=== PATIENT | female | born 1930 | race Caucasian/White ===

== ENCOUNTER 2016-09-27 13:12 | Inpatient (IN) | payer MEDICARE ==
--- NOTE | 2016-09-27 13:21 | ED ---
General Adult HPI - General Stated complaint: chest pain, vomiting Time Seen by Provider: 09/27/16 13:21 Source: RN notes reviewed, old records reviewed - History of Present Illness Initial comments: This is an 78-year-old female the ER for evaluation. This patient presents today for evaluation of shortness of breath weakness and altered mental status. Patient has no real medical history, has been exposed and she does live in a care facility to the flu. No fevers noted. Patient is a poor strain, history patient EMS and patient's chart - Related Data Home Medications Medication Instructions Recorded Confirmed HYDROcodone/APAP 10-325MG [[place] 1 tab PO DAILY 09/27/16 09/27/16 10-325] Allergies Allergy/AdvReac Type Severity Reaction Status Date / Time iodine Allergy Unknown Verified 09/27/16 13:52 Penicillins Allergy Unknown Verified 09/27/16 13:52 Childhood Review of Systems ROS Statement: Those systems with pertinent positive or pertinent negative responses have been documented in the HPI. ROS Other: All systems not noted in ROS Statement are negative. General Exam Limitations: altered mental status General appearance: alert, in no apparent distress, anxious, in distress, cachectic Head exam: Present: atraumatic, normocephalic, normal inspection Eye exam: Present: normal appearance, PERRL, EOMI. Absent: scleral icterus, conjunctival injection, periorbital swelling ENT exam: Present: normal exam, mucous membranes moist Neck exam: Present: normal inspection. Absent: tenderness, meningismus, lymphadenopathy Respiratory exam: Present: respiratory distress, wheezes, accessory muscle use, decreased breath sounds, prolonged expiratory. Absent: rales, rhonchi, stridor Cardiovascular Exam: Present: regular rate, normal rhythm, normal heart sounds. Absent: systolic murmur, diastolic murmur, rubs, gallop, clicks GI/Abdominal exam: Present: soft, normal bowel sounds. Absent: distended, tenderness, guarding, rebound, rigid Extremities exam: Present: normal inspection, full ROM, normal capillary refill. Absent: tenderness, pedal edema, joint swelling, calf tenderness Back exam: Present: normal inspection Neurological exam: Present: alert, oriented X3, CN II-XII intact Psychiatric exam: Present: normal affect, normal mood Skin exam: Present: warm, dry, intact, normal color. Absent: rash Course Vital Signs 09/27/16 09/27/16 09/27/16 13:26 14:03 14:30 Temperature 97.9 F Pulse Rate 94 Pulse Rate [ 82 82 Electrical Sign Wirer ] Respiratory 28 H 24 24 Rate Blood Pressure 118/72 Blood Pressure 98/53 103/61 [Right Arm Sitting] O2 Sat by Pulse 89 L 92 L 94 L Oximetry 09/27/16 09/27/16 09/27/16 14:37 14:52 15:22 Temperature Pulse Rate 86 92 86 Pulse Rate [ Electrical Sign Wirer ] Respiratory Rate Blood Pressure Blood Pressure [Right Arm Sitting] O2 Sat by Pulse Oximetry - Reevaluation(s) Reevaluation #1: 09/27/16 15:29 Patient breathing does appear to be improved with breathing treatments, patient is still significantly dehydrated, no real improvement improvement in mentation EKG Findings - EKG Comments: EKG Findings:: EKG shows A. fib rate of 96, QS 80, QTc 464 Medical Decision Making - Medical Decision Making 86 female at ER for evaluation of altered mental status, fever, positive influenza, COPD exacerbation, patient is found to be also profoundly dehydrated , will admit for IV hydration, resuscitation breathing treatments - Lab Data Result diagrams: 09/27/16 13:53 09/27/16 13:53 Lab Results 09/27/16 09/27/16 09/27/16 Range/Units 13:53 13:53 13:53 WBC 7.6 (3.8-10.6) k/uL RBC 5.06 (3.80-5.40) m/uL Hgb 15.8 (11.4-16.0) gm/dL Hct 47.5 H (34.0-46.0) % MCV 93.9 (80.0-100.0) fL MCH 31.2 (25.0-35.0) pg MCHC 33.2 (31.0-37.0) g/dL RDW 13.1 (11.5-15.5) % Plt Count 257 (150-450) k/uL Neutrophils % 59 % Lymphocytes % 32 % Monocytes % 6 % Eosinophils % 0 % Basophils % 0 % Neutrophils # 4.4 (1.3-7.7) k/uL Lymphocytes # 2.4 (1.0-4.8) k/uL Monocytes # 0.5 (0-1.0) k/uL Eosinophils # 0.0 (0-0.7) k/uL Basophils # 0.0 (0-0.2) k/uL Sodium 133 L (137-145) mmol/L Potassium 4.0 (3.5-5.1) mmol/L Chloride 97 L (98-107) mmol/L Carbon Dioxide 23 (22-30) mmol/L Anion Gap 13 mmol/L BUN 59 H (7-17) mg/dL Creatinine 1.18 H (0.52-1.04) mg/dL Est GFR (MDRD) Af Amer 52 (>60 ml/min/1.73 sqM) Est GFR (MDRD) Non-Af 43 (>60 ml/min/1.73 sqM) Glucose 122 H (74-99) mg/dL Plasma Lactic Acid Darek 1.4 (0.7-2.0) mmol/L Calcium 8.2 L (8.4-10.2) mg/dL Phosphorus (2.5-4.5) mg/dL Magnesium (1.6-2.3) mg/dL Total Bilirubin 0.8 (0.2-1.3) mg/dL AST 140 H (14-36) U/L ALT 57 H (9-52) U/L Alkaline Phosphatase 78 (38-126) U/L Total Creatine Kinase (30-135) U/L CK-MB (CK-2) (0.0-2.4) ng/mL CK-MB (CK-2) Rel Index Troponin I (0.000-0.034) ng/mL Total Protein 6.9 (6.3-8.2) g/dL Albumin 3.5 (3.5-5.0) g/dL Influenza Type A RNA (Not Detectd) Influenza Type B (PCR) (Not Detectd) 09/27/16 09/27/16 09/27/16 Range/Units 13:53 13:53 14:42 WBC (3.8-10.6) k/uL RBC (3.80-5.40) m/uL Hgb (11.4-16.0) gm/dL Hct (34.0-46.0) % MCV (80.0-100.0) fL MCH (25.0-35.0) pg MCHC (31.0-37.0) g/dL RDW (11.5-15.5) % Plt Count (150-450) k/uL Neutrophils % % Lymphocytes % % Monocytes % % Eosinophils % % Basophils % % Neutrophils # (1.3-7.7) k/uL Lymphocytes # (1.0-4.8) k/uL Monocytes # (0-1.0) k/uL Eosinophils # (0-0.7) k/uL Basophils # (0-0.2) k/uL Sodium (137-145) mmol/L Potassium (3.5-5.1) mmol/L Chloride (98-107) mmol/L Carbon Dioxide (22-30) mmol/L Anion Gap mmol/L BUN (7-17) mg/dL Creatinine (0.52-1.04) mg/dL Est GFR (MDRD) Af Amer (>60 ml/min/1.73 sqM) Est GFR (MDRD) Non-Af (>60 ml/min/1.73 sqM) Glucose (74-99) mg/dL Plasma Lactic Acid Darek (0.7-2.0) mmol/L Calcium (8.4-10.2) mg/dL Phosphorus 4.2 (2.5-4.5) mg/dL Magnesium 2.4 H (1.6-2.3) mg/dL Total Bilirubin (0.2-1.3) mg/dL AST (14-36) U/L ALT (9-52) U/L Alkaline Phosphatase (38-126) U/L Total Creatine Kinase 2947 H (30-135) U/L CK-MB (CK-2) 4.8 H* (0.0-2.4) ng/mL CK-MB (CK-2) Rel Index Troponin I 0.063 H* (0.000-0.034) ng/mL Total Protein (6.3-8.2) g/dL Albumin (3.5-5.0) g/dL Influenza Type A RNA Not Detected (Not Detectd) Influenza Type B (PCR) Detected H (Not Detectd) - Radiology Data Radiology results: report reviewed (Chest x-ray two-view is negative for pneumonia), image reviewed Critical Care Time Critical Care Time: Yes Total Critical Care Time: 31 Disposition Clinical Impression: Acute exacerbation of chronic obstructive airways disease, Dehydration, Elevated troponin, ARF (acute renal failure), Influenza B Disposition: ADMITTED IP TO THIS HOSP Condition: Serious Referrals: Fady Haines MD [Primary Care Provider] - 1-2 days
[2016-09-27] MEDS ORDERED: IPRATROPIUM 0.5 MG/2.5 ML NEBU INHALATION STA (13:58)
[2016-09-27] MEDS ORDERED: ACETAMINOPHEN IV (For NPO) 1,000 MG in EMPTY BAG 1 BAG IVPB STA (13:58)
[2016-09-27] MEDS ORDERED: KETOROLAC 30 MG/ML 1 ML VIAL IVP STA (13:58)
[2016-09-27] MEDS ORDERED: ALBUTEROL NEBULIZED 2.5 MG/3 ML INHALATION STA (13:58)
[2016-09-27] MEDS ORDERED: MORPHINE SULFATE 4 MG/ML SYRINGE IVP STA (13:58)
[2016-09-27 14:09] LABS: Basophils % (A) 0 %; CHCM 34.2; Eosinophils % (A) 0 %; HCT 47.5 % (34.0-46.0); HDW 2.36; HGB 15.8 gm/dL (11.4-16.0); Luc # (Auto) 0.22; Luc % (Auto) 3; Lymphocytes # (A) 2.4 k/uL (1.0-4.8); Lymphocytes % (A) 32 %; MCH 31.2 pg (25.0-35.0); MCHC 33.2 g/dL (31.0-37.0); MCV 93.9 fL (80.0-100.0); Mean Platelet Volume 7.1; Monocytes # (A) 0.5 k/uL (0-1.0); Monocytes % (A) 6 %; Neutrophils # (A) 4.4 k/uL (1.3-7.7); Neutrophils % (A) 59 %; RBC 5.06 m/uL (3.80-5.40); RDW 13.1 % (11.5-15.5); WBC 7.6 k/uL (3.8-10.6); WBC (Perox) 7.81
[2016-09-27 14:15] LABS: Calcium 8.2 mg/dL (8.4-10.2); Total Bilirubin 0.8 mg/dL (0.2-1.3); Total Protein 6.9 g/dL (6.3-8.2)
--- NOTE | 2016-09-27 14:36 | XR ---
EXAMINATION TYPE: XR chest 2V DATE OF EXAM: 09/27/2016 2:33 PM COMPARISON: NONE HISTORY: Cough and congestion TECHNIQUE: Frontal and lateral views of the chest are obtained. FINDINGS: There is chronic emphysematous change without suspicious focal air space opacity, pleural effusion, or pneumothorax seen. The cardiac silhouette size is upper limits of normal with atheroscl erotic thoracic aorta. The osseous structures are demineralized. Chronic thickening right paratrach eal stripe is present. IMPRESSION: Chronic emphysematous change without acute pulmonary process.
[2016-09-27 14:48] LABS: Magnesium 2.4 mg/dL (1.6-2.3)
[2016-09-27 14:50] LABS: Phosphorous 4.2 mg/dL (2.5-4.5)
[2016-09-27 15:02] LABS: Creatine Kinase MB 4.8 ng/mL (0.0-2.4); Troponin I 0.063 ng/mL (0.000-0.034)
[2016-09-27] MEDS ORDERED: SODIUM CHLORIDE 0.9% 1,000 ML IV STA ×2 (15:02)
[2016-09-27] MEDS ORDERED: SODIUM CHLORIDE 0.9% 500 ML IV STA (15:02)
[2016-09-27] MEDS ORDERED: SODIUM CHLORIDE 0.9% 2,000 ML IV STA (15:02)
[2016-09-27] MEDS ORDERED: OSELTAMIVIR 75 MG CAP PO STA (15:24)
[2016-09-27] MEDS ORDERED: methylPREDNISolone SOD SUCCI 125 MG/2 ML VIAL IV STA (15:27)
[2016-09-27] MEDS ORDERED: MORPHINE SULFATE 4 MG/ML SYRINGE IV PRN (15:31)
[2016-09-27] MEDS ORDERED: NITROGLYCERIN SL TABS 0.4 MG TAB SUBLINGUAL PRN (15:31)
[2016-09-27] MEDS ORDERED: ASPIRIN 81 MG CHEW PO STA (15:31)
[2016-09-27 15:33] LABS: Partial Thromboplastin Time 24.4 sec (22.0-30.0); Prothrombin Time 9.9 sec (9.0-12.0)
[2016-09-27] MEDS ORDERED: HYDROcodone/APAP 10-325MG 1 EACH TAB PO ONE (15:56)
[2016-09-27] MEDS ORDERED: HEPARIN SODIUM,PORCINE 5,000 UNIT/ML 1 ML VIAL IV ONE (16:03)
[2016-09-27] MEDS ORDERED: HEPARIN SODIUM,PORCINE 5,000 UNIT/ML 1 ML VIAL IV PRN ×2 (16:03→21:50)
[2016-09-27] MEDS ORDERED: DILTIAZEM 5 MG/ML 5 ML VIAL IVP STA (16:04)
[2016-09-27] MEDS ORDERED: DILTIAZEM 125 MG in SODIUM CHLORIDE 0.9% 100 ML IV SCH (16:15)
[2016-09-27] MEDS ORDERED: HEPARIN SODIUM,PORCINE/D5W PMX 25,000 UNIT in DEXTROSE/WATER 1 500ML.BAG IV SCH ×2 (16:15→22:00)
[2016-09-27] MEDS ORDERED: IPRATROPIUM-ALBUTEROL 3 ML NEB INHALATION SCH (20:00)
[2016-09-27 21:23] LABS: Glucose,Whole Blood 194 mg/dL (75-99)
[2016-09-27 22:02] LABS: Creatine Kinase MB 3.9 ng/mL (0.0-2.4)
[2016-09-27 22:03] LABS: Troponin I 0.042 ng/mL (0.000-0.034)
[2016-09-27] MEDS ORDERED: IPRATROPIUM-ALBUTEROL 3 ML NEB INHALATION PRN (22:13)
[2016-09-27] MEDS: methylPREDNISolone SOD SUCCI 125 MG/2 ML VIAL IV SCH (22:17)
[2016-09-27] MEDS: SODIUM CHLORIDE 0.9% 1,000 ML IV SCH (22:19)
[2016-09-27] MEDS: INSULIN LISPRO (humaLOG) 300 UNIT/3 ML VIAL SQ SCH (22:23)
[2016-09-28 00:55] LABS: Amorphous Sediment,Urine Rare /hpf; Appearance,Urine Cloudy (Clear); Bilirubin,Urine Negative (Negative); Glucose,Urine (UA) Trace (Negative); Ketones,Urine 1+ (Negative); Leukocyte Esterase,Urine Negative (Negative); Mucus,Urine Rare /hpf; Nitrite,Urine Negative (Negative); PH, Urine 5.5 (5.0-8.0); Particle Count 10339; Protein,Urine Trace (Negative); Specific Gravity,Urine 1.014 (1.001-1.035); Squamous Epithelial Cell,Urine 1 /hpf (0-4); UA Billing (MACRO vs. MICRO) MICRO; Urobilinogen,Urine <2.0 mg/dL (<2.0); WBC,Urine 1 /hpf (0-5)
[2016-09-28 02:28] LABS: Creatine Kinase MB 4.9 ng/mL (0.0-2.4)
[2016-09-28 02:29] LABS: Troponin I 0.046 ng/mL (0.000-0.034)
[2016-09-28 06:10] LABS: Glucose,Whole Blood 106 mg/dL (75-99)
[2016-09-28 06:45] LABS: Basophils % (A) 0 %; CH 31.6; Eosinophils % (A) 0 %; HCT 37.3 % (34.0-46.0); HDW 2.36; Luc # (Auto) 0.08; Luc % (Auto) 1; Lymphocytes # (A) 0.7 k/uL (1.0-4.8); Lymphocytes % (A) 11 %; MCH 31.2 pg (25.0-35.0); MCHC 32.5 g/dL (31.0-37.0); MCV 95.9 fL (80.0-100.0); Mean Platelet Volume 7.1; Monocytes # (A) 0.2 k/uL (0-1.0); Monocytes % (A) 3 %; Neutrophils # (A) 4.9 k/uL (1.3-7.7); Neutrophils % (A) 84 %; RBC 3.89 m/uL (3.80-5.40); WBC 5.8 k/uL (3.8-10.6); WBC (Perox) 6.23
[2016-09-28] MEDS: SODIUM CHLORIDE 0.9% 1,000 ML IV SCH ×3 (06:45→22:20)
[2016-09-28 06:48] LABS: HGB 12.1 gm/dL (11.4-16.0)
[2016-09-28] MEDS: methylPREDNISolone SOD SUCCI 125 MG/2 ML VIAL IV SCH ×2 (06:48→12:10)
[2016-09-28] MEDS: INSULIN LISPRO (humaLOG) 300 UNIT/3 ML VIAL SQ SCH ×4 (06:49→22:20)
[2016-09-28] MEDS: OSELTAMIVIR 75 MG CAP PO SCH ×2 (06:49→16:49)
[2016-09-28 07:17] LABS: Cholesterol 121 mg/dL (<200); HDL Cholesterol 43 mg/dL (40-60); Triglycerides 59 mg/dL (<150)
[2016-09-28] MEDS: IPRATROPIUM-ALBUTEROL 3 ML NEB INHALATION SCH ×4 (07:28→20:02)
[2016-09-28] MEDS ORDERED: ENOXAPARIN 40 MG/0.4 ML SYRINGE SQ SCH (09:00)
[2016-09-28] MEDS: ATORVASTATIN 80 MG TAB PO SCH (09:03)
[2016-09-28] MEDS: ASPIRIN 325 MG TAB PO SCH (09:03)
--- NOTE | 2016-09-28 11:27 | ECHOF ---
Referral Reason:arrythmia MEASUREMENTS -------- HEIGHT: 167.6 cm WEIGHT: 59.0 kg BP: IVSd: 1.0 cm (0.6 - 1.1) LVIDd: 4.0 cm (3.9 - 5.3) LVPWd: 1.2 cm (0.6 - 1.1) IVSs: 1.7 cm LVIDs: 2.1 cm LVPWs: 1.9 cm LAESV Index (A-L): 23.79 ml/m Ao Diam: 2.9 cm (2.0 - 3.7) AV Cusp: 1.9 cm (1.5 - 2.6) LA Diam: 3.7 cm (2.7 - 3.8) MV EXCURSION: 10.065 mm (> 18.000) MV EF SLOPE: 50 mm/s (70 - 150) EPSS: 0.6 cm MV E Dino: 0.91 m/s MV DecT: 237 ms MV A Dino: 0.91 m/s MV E/A Ratio: 0.99 RAP: 5.00 mmHg RVSP: 30.33 mmHg FINDINGS -------- Sinus rhythm. This was a technically good study. There is mild concentric left ventricular hypertrophy. Overall left ventricular systolic function is normal with, an EF between 55 - 60 %. The right ventricle is normal in size and function. Normal LA size by volume 22+/-6 ml/m2. RA appears enlarged. Possible ASD The aortic valve is trileaflet, and appears structurally normal. No aortic stenosis or regurgitation. The mitral valve leaflets are mildly thickened. Mild mitral annular calcification present. Mild mitral regurgitation is present. Severe tricuspid regurgitation present. The right ventricular systolic pressure, as measured by Doppler, is 30.33mmHg. Pulmonic valve appears structurally normal. The pericardium is normal. CONCLUSIONS -------- 1. Sinus rhythm. 2. The mitral valve leaflets are mildly thickened. 3. Mild mitral annular calcification present. 4. Mild mitral regurgitation is present. 5. Severe tricuspid regurgitation present. 6. The right ventricular systolic pressure, as measured by Doppler, is 30.33mmHg. 7. Pulmonic valve appears structurally normal. 8. The pericardium is normal. 9. This was a technically good study. 10. There is mild concentric left ventricular hypertrophy. 11. Overall left ventricular systolic function is normal with, an EF between 55 - 60 %. 12. The right ventricle is normal in size and function. 13. Normal LA size by volume 22+/-6 ml/m2. 14. RA appears enlarged. 15. Possible ASD 16. The aortic valve is trileaflet, and appears structurally normal. No aortic stenosis or regurgitation. TRAFFIC AGENT: Beckie Montgomery RDCS
[2016-09-28 11:37] LABS: Glucose,Whole Blood 140 mg/dL (75-99)
--- NOTE | 2016-09-28 11:49 | CONS ---
DATE OF CONSULTATION: CHIEF COMPLAINT: Atrial fibrillation. This is an 86-year-old lady with no significant past medical history who presented to the hospital complaining of weakness, fatigue, fever and had been diagnosed with influenza. Cardiology had been consulted because of cardiac arrhythmia noted on her EKG on her initial presentation. She was thought to have had atrial fibrillation, but on careful evaluation of the EKG it appears that the patient was in atrial tachycardia with PVCs rather than in A. fib and subsequently rhythm strip shows that she is clearly in sinus rhythm. Her predominant symptom is cough, fatigue and not feeling well. Past medical history is negative for hypertension, diabetes, dyslipidemia. MEDICATIONS: None. Allergic to PENICILLIN and IV DYE. Family history is negative for premature coronary artery disease. Social history is negative for current smoking, EtOH abuse, or drug abuse. REVIEW OF SYSTEMS: HEENT is unremarkable. CARDIAC: As described above. RESPIRATORY: As described above. GI: Negative. GENITOURINARY: Negative. MUSCULOSKELETAL: Significant for arthritis. PSYCHOSOCIAL: Negative. ENDOCRINE: Negative. HEMATOLOGICAL: Negative. DERM: Negative. CONSTITUTIONAL: Significant for fever, chills, fatigue. The rest of the systems review is not relevant. On exam, she is comfortable at rest, afebrile. Heart rate is 60 beats per minute, blood pressure 116/60, respirations 18, O2 sat is 91% on 3 L. There is no jugular venous distention. Chest exam reveals bilateral occasional rhonchi. Heart exam reveals first and second heart sounds. There is a systolic murmur at the left lower sternal border. Abdomen is soft. Exam of the extremities did not reveal edema. Peripheral pulses are felt. Labs show a hemoglobin of 12.1, platelet count is 182. Troponins are in the casillas zone at 0.06, 0.04 and 0.04. ASSESSMENT: 1. Troponin elevation. 2. Cardiac arrhythmia. 3. Pneumonia. PLAN: Patient's troponin elevation is probably related to her viral illness. I will obtain a 2-D echo to document her LV function and to assess wall motions. Cardiac arrhythmia itself does not require any therapies at this time. Patient is not in A. fib. Thank you for allowing us to participate in the care of this pleasant lady.
[2016-09-28 11:52] LABS: Hemoglobin A1C 5.2 % (4.2-6.1)
--- NOTE | 2016-09-28 15:11 | CONS ---
DATE OF CONSULTATION: Tessa To is an 86-year-old female who presented to the ER at the [facility] with weakness. She is pleasantly confused at this time and does not give me much history. She also had been complaining of chest pain. She apparently stays in a correction. When she was seen in the ER, she was found to be short of breath had some chest pain, was found to be positive for influenza B and subsequently was admitted for further evaluation and management. PAST MEDICAL HISTORY: Positive for I believe arthritis. Medications prior to admission were Irene. FAMILY HISTORY: Unavailable. SOCIAL HISTORY: The patient is a past smoker and used to drink alcohol excessively in the past as well. On physical examination, blood pressure 115/65, respiratory rate 18, pulse rate of 61, temperature 97.2, O2 sat on 3 L by nasal cannula is 93%. HEENT reveals pupils are equal. No jugular venous distention. Chest reveals decreased breath sounds, occasional rhonchi. Cardiovascular system reveals S1 and S2. Abdomen is soft. There is no pedal edema. White count is 5.8, hemoglobin 12.1. CPK of 2022 with an MB of 4.9. Troponin 0.046. UA showed pH of 5.5, specific gravity 1.01, rare sediment and rare mucus in the urine. There was trace protein, trace glucose and 1+ ketones. Chest x-ray shows chronic emphysematous changes. Echocardiogram shows tricuspid regurgitation with elevated right ventricular systolic pressure at 30 mmHg with enlarged right atrium. IMPRESSION AT THIS TIME: 1. Influenza B. 2. Possible emphysema. 3. Previous nicotine dependence. 4. Elevated CPK, which is due to skeletal muscle breakdown. At this point in time from a pulmonary standpoint, would continue bronchodilators. Would discontinue her IV steroids at this time. Add inhaled steroids. Keep her on Tamiflu. Keep her on GI and DVT prophylaxis. Depending on how she does, we shall make further changes to her care. I would like to thank you for allowing me to participate in her care.
[2016-09-28] MEDS: HEPARIN SODIUM,PORCINE 5,000 UNIT/ML 1 ML VIAL SQ SCH ×2 (15:35→22:20)
[2016-09-28 16:33] LABS: Glucose,Whole Blood 144 mg/dL (75-99)
[2016-09-28] MEDS: BUDESONIDE 0.5 MG/2 ML NEBU INHALATION SCH (20:02)
[2016-09-28 20:51] LABS: Glucose,Whole Blood 181 mg/dL (75-99)
[2016-09-28] MEDS ORDERED: FAMOTIDINE 20 MG/2 ML VIAL IV SCH (21:00)
--- NOTE | 2016-09-28 22:29 | HP ---
CHIEF COMPLAINT: An 86-year-old white female with atrial fibrillation, COPD exacerbation and Possible CHF. She is admitted with positive influenza, pneumonia and atrial fibrillation. She has had cough, phlegm production for the past week or 2; significant weakness, fatigue. Past medical history is negative for any hypertension, diabetes, dyslipidemia. MEDS: None. ALLERGIES: PENICILLIN. Family history of premature artery disease. SOCIAL HISTORY: Negative for smoking, alcohol or drugs. Lives at [facility] in [facility] home. REVIEW OF SYSTEMS: HEENT: Negative. CARDIAC: As mentioned above. PULMONARY: As mentioned above. GI: Negative. : Negative. IMMUNE: Negative. INTEGUMENT: Negative. MUSCULOSKELETAL: She has a generalized arthritis. DERM: Negative. CONSTITUTIONAL: Fever, chills, fatigue. Blood pressure has been running 110s/60s, respiration 18 to 25, O2 sat 91% on 3L. VASCULAR: No JVD. Chest shows scattered rhonchi. HEART: S1, S2. Systolic ejection murmur, left lower sternal border. ABDOMEN: Soft. VASCULAR: No cyanosis, clubbing, edema. Peripheral pulses are normal; dorsalis pedis, posterior tibial and radial pulses. LABS: Hemoglobin 12.1. Platelet count 182. Troponin is in the casillas zone. ASSESSMENT: 1. Troponin elevation. 2. Influenza type pneumonia. 3. Chronic obstructive pulmonary disease exacerbation. 4. Cardiac arrhythmia. 5. Acute respiratory failure secondary to pneumonia. PLAN: Continue with IV antibiotics. Steroids through the IV will also be given. Updrafts with DuoNeb will be also be given. Influenza B: Elevated CPKs secondary to skeletal muscle breakdown. Started on Tamiflu. Please see further recommendations.
[2016-09-29 06:13] LABS: Glucose,Whole Blood 106 mg/dL (75-99)
[2016-09-29 06:33] LABS: Basophils % (A) 0 %; CH 31.9; CHCM 33.5; Eosinophils % (A) 0 %; HCT 33.2 % (34.0-46.0); HGB 11.1 gm/dL (11.4-16.0); Luc # (Auto) 0.07; Luc % (Auto) 1; Lymphocytes # (A) 0.7 k/uL (1.0-4.8); Lymphocytes % (A) 10 %; MCH 31.9 pg (25.0-35.0); MCHC 33.3 g/dL (31.0-37.0); MCV 95.6 fL (80.0-100.0); Mean Platelet Volume 8.2; Monocytes # (A) 0.5 k/uL (0-1.0); Monocytes % (A) 6 %; Neutrophils # (A) 6.5 k/uL (1.3-7.7); Neutrophils % (A) 83 %; RBC 3.47 m/uL (3.80-5.40); RDW 13.2 % (11.5-15.5); WBC 7.8 k/uL (3.8-10.6); WBC (Perox) 8.43
[2016-09-29] MEDS: INSULIN LISPRO (humaLOG) 300 UNIT/3 ML VIAL SQ SCH (06:36)
[2016-09-29] MEDS: OSELTAMIVIR 75 MG CAP PO SCH ×2 (06:37→17:22)
[2016-09-29] MEDS: BUDESONIDE 0.5 MG/2 ML NEBU INHALATION SCH ×2 (08:05→19:50)
[2016-09-29] MEDS: IPRATROPIUM-ALBUTEROL 3 ML NEB INHALATION SCH ×4 (08:05→19:50)
[2016-09-29] MEDS: SODIUM CHLORIDE 0.9% 1,000 ML IV SCH (08:16)
[2016-09-29] MEDS: HEPARIN SODIUM,PORCINE 5,000 UNIT/ML 1 ML VIAL SQ SCH ×3 (08:16→21:29)
[2016-09-29] MEDS: ATORVASTATIN 80 MG TAB PO SCH (08:16)
[2016-09-29] MEDS: ASPIRIN 325 MG TAB PO SCH (08:16)
[2016-09-29] MEDS ORDERED: FAMOTIDINE 20 MG/2 ML VIAL IV SCH (09:00)
[2016-09-29] MEDS ORDERED: FUROSEMIDE 10 MG/ML 2 ML VIAL IV ONE (09:24)
[2016-09-29 10:00] LABS: ALT 49 U/L (9-52); AST 74 U/L (14-36); Alkaline Phosphatase 50 U/L (38-126); Anion Gap 6 mmol/L; Blood Urea Nitrogen 18 mg/dL (7-17); Calcium 7.7 mg/dL (8.4-10.2); Carbon Dioxide 23 mmol/L (22-30); Chloride 109 mmol/L (98-107); Glucose 105 mg/dL (74-99); Non-African American GFR(MDRD) >60 (>60 ml/min/1.73 sqM); Potassium 3.7 mmol/L (3.5-5.1); Sodium 138 mmol/L (137-145); Total Bilirubin 0.4 mg/dL (0.2-1.3); Total Protein 5.3 g/dL (6.3-8.2)
--- NOTE | 2016-09-29 10:12 | PN ---
86-year-old lady that is admitted to hospital with flu and cardiology has been consulted for a question about atrial fibrillation and mild troponin elevation. This morning, patient developed shortness of breath and had some crackles at the bases and seemed to be fluid overloaded. I am going to ( ) patient is on Lasix and will give her a dose of Lasix this morning. She had an echocardiogram done yesterday that showed normal LV systolic function. On exam, she is comfortable at rest. Vital signs are stable. Chest exam reveals occasional rhonchi. Heart exam reveals first and second heart sounds. No gallop. Exam of the extremities did not reveal any edema. Peripheral pulses are felt. Labs show a hemoglobin of 11 and a platelet count is 171. ASSESSMENT: 1. Mild troponin elevation secondary to influenza. 2. Influenza. 3. Fluid overload. PLAN: We will continue with the IV Lasix, continue the aspirin and atorvastatin that she is currently on and Tamiflu.
[2016-09-29 11:58] LABS: Glucose,Whole Blood 95 mg/dL (75-99)
[2016-09-29] MEDS ORDERED: ACETAMINOPHEN TAB 325 MG TAB PO PRN (18:03)
[2016-09-30 06:12] LABS: Basophils % (A) 0 %; CH 31.8; CHCM 34.3; Eosinophils % (A) 0 %; HCT 37.4 % (34.0-46.0); HDW 2.56; HGB 12.7 gm/dL (11.4-16.0); Luc # (Auto) 0.11; Luc % (Auto) 1; Lymphocytes # (A) 1.4 k/uL (1.0-4.8); Lymphocytes % (A) 14 %; MCH 31.8 pg (25.0-35.0); MCHC 34.1 g/dL (31.0-37.0); MCV 93.3 fL (80.0-100.0); Mean Platelet Volume 7.2; Monocytes # (A) 0.5 k/uL (0-1.0); Monocytes % (A) 5 %; Neutrophils # (A) 8.1 k/uL (1.3-7.7); Neutrophils % (A) 80 %; RDW 13.1 % (11.5-15.5); WBC 10.1 k/uL (3.8-10.6); WBC (Perox) 10.74
[2016-09-30 06:31] LABS: ALT 56 U/L (9-52); AST 90 U/L (14-36); Alkaline Phosphatase 62 U/L (38-126); Anion Gap 8 mmol/L; Blood Urea Nitrogen 10 mg/dL (7-17); Calcium 7.8 mg/dL (8.4-10.2); Carbon Dioxide 28 mmol/L (22-30); Chloride 100 mmol/L (98-107); Glucose 87 mg/dL (74-99); Non-African American GFR(MDRD) >60 (>60 ml/min/1.73 sqM); Potassium 3.1 mmol/L (3.5-5.1); Sodium 136 mmol/L (137-145); Total Bilirubin 0.7 mg/dL (0.2-1.3); Total Protein 5.6 g/dL (6.3-8.2)
[2016-09-30] MEDS: OSELTAMIVIR 75 MG CAP PO SCH ×2 (06:57→17:45)
--- NOTE | 2016-09-30 08:29 | P.PN ---
Subjective 86-year-old female being seen on rounds by the attending. Patient is pleasantly confused. Patient did present to the emergency room on the day of admission with a chief complaint of shortness of breath and generalized weakness. Patient was found to be positive for influenza B. Patient has been seen by pulmonology service and has been started on updrafts and inhaled steroids additionally a cardiology consultation was requested. There was a question about the atrial fibrillation mild elevated troponin. Cardiology felt that the mild troponin elevation was secondary to the influenza. Patient was given IV Lasix. Echocardiogram was done on the fifth. It showed normal LV systolic function. The monitor showed what appears to be sinus with PVCs. Patient feels less short of breath potassium was low this morning at 3.1 which replacement has been ordered Objective - Vital Signs Vital signs: Vital Signs Temp 97.6 F 09/29/16 15:26 Pulse 63 09/30/16 04:00 Resp 22 09/30/16 04:00 BP 112/63 09/30/16 04:00 Pulse Ox 92 L 09/30/16 04:00 Intake & Output 09/29/16 09/30/16 09/30/16 18:59 06:59 18:59 Intake Total 340 Output Total 1950 800 Balance -1610 -800 Weight 58.6 kg Intake: Oral 340 Output: Urine 1950 800 Other: Voiding Method Bedside Commode Bedside Commode - Exam Physical exam 86-year-old female resting does not appear in any acute distress pleasant oriented to self and place nasal cannula on 3 L sats are 9192% Lungs posterior dry crackles at the bases otherwise adequate air movement no wheezing Heart S1-S2 audible and irregular monitor sinus with unifocal PVCs rate controlled denying chest pain Abdomen soft nontender no frequent stooling using bedside commode Extremities no evidence of edema - Labs CBC & Chem 7: 09/30/16 05:36 09/30/16 05:36 Labs: Abnormal Lab Results - Last 24 Hours (Table) 09/29/16 09/30/16 09/30/16 Range/Units 06:11 05:36 05:36 Neutrophils # 8.1 H (1.3-7.7) k/uL Sodium 136 L (137-145) mmol/L Potassium 3.1 L (3.5-5.1) mmol/L Chloride 109 H (98-107) mmol/L BUN 18 H (7-17) mg/dL Glucose 105 H (74-99) mg/dL Calcium 7.7 L 7.8 L (8.4-10.2) mg/dL AST 74 H 90 H (14-36) U/L ALT 56 H (9-52) U/L Total Protein 5.3 L 5.6 L (6.3-8.2) g/dL Albumin 2.5 L 2.8 L (3.5-5.0) g/dL Microbiology - Last 24 Hours (Table) 09/28/16 00:30 Urine Culture - Preliminary Urine,Clean Catch Gram Neg Bacilli Assessment and Plan Plan: Impression Present on admission shortness of breath suspect due to volume overload congestive heart failure with preserved LV function likely diastolic Mildly elevated troponin suspect due to influenza Present on admission positive influenza B Present on admission elevated CPK likely due to skeletal muscle breakdown A remote history of nicotine dependency Echocardiogram left ventricular systolic function normal EF 55-60% Echocardiogram mild LVH Hypokalemic electrolyte abnormal Baseline dementia with no behavior disturbance Plan Continue recommendations by pulmonary and cardiology service Potassium to be replaced keep in a therapeutic range Resume home meds as appropriate Continue current aerosol bronchodilators DVT and GI prophylaxis Continue the Tamiflu as ordered Further recommendations pending will follow The above dictated assessment and findings were discussed with dr avalos Impression and the plan of care have been dictated as directed. Ruma Palma nurse practitioner acting as a scribe for dr avalos
[2016-09-30] MEDS: HYDROcodone/APAP 10-325MG 1 EACH TAB PO SCH (09:39)
[2016-09-30] MEDS: HEPARIN SODIUM,PORCINE 5,000 UNIT/ML 1 ML VIAL SQ SCH ×2 (09:39→15:27)
[2016-09-30] MEDS: ASPIRIN 325 MG TAB PO SCH (09:40)
[2016-09-30] MEDS: POTASSIUM CHLORIDE ER 20 MEQ TAB.ER PO SCH ×2 (09:40→11:39)
[2016-09-30] MEDS: FAMOTIDINE 20 MG TAB PO SCH ×2 (09:40→21:16)
[2016-09-30] MEDS: ATORVASTATIN 80 MG TAB PO SCH (09:40)
[2016-09-30] MEDS: BUDESONIDE 0.5 MG/2 ML NEBU INHALATION SCH ×2 (09:52→19:28)
[2016-09-30] MEDS: IPRATROPIUM-ALBUTEROL 3 ML NEB INHALATION SCH ×4 (09:52→19:28)
--- NOTE | 2016-09-30 10:10 | PN ---
DATE OF SERVICE: 09/29/2016 She has been hemodynamically stable. She is more awake and alert. She does not seem as short of breath as yesterday. On physical examination, her blood pressure was 106/55, respiratory rate 18, pulse rate of 68, temperature 97.6, O2 sat on 3 liters by nasal cannula is 94%. HEENT reveals occasional rhonchi. Cardiovascular system reveals S1 and S2. Abdomen is soft. There is no pedal edema. Urine is showing 10,000 to 49,000 Gram-negative bacilli. Blood culture showing no growth. IMPRESSION: 1. Influenza B infection. 2. Respiratory distress, in part due to influenza B, doubt significant bacterial pneumonia. At this time continue Tamiflu, bronchodilators, aerosolized steroids. Keep her as comfortable as possible. Her prognosis at this time is fair.
--- NOTE | 2016-09-30 10:43 | PN ---
SUBJECTIVE: This is an 86-year-old white female admitted with COPD exacerbation, elevate troponin secondary to influenza, dehydration and wheezing. Patient is improving. Her hemoglobin is 11.1, white count is 7.8. Vital signs showed 94% on 3 L, she was done 92 on 3 L. She is improving. Blood pressure 106 to 110/50's. Respirations 18 to 19, pulses 68 to 70, temp 97.6. CARDIOVASCULAR: S1, S2. LUNGS: Transmitted upper airway and scattered wheeze. She has some audible wheeze. : No suprapubic tenderness, muscular range of motion full x4. INTEGUMENT: Poor skin turgor. ASSESSMENT: 1. Influenza positive. 2. Chronic obstructive pulmonary disease exacerbation positive. 3. Elevated troponins secondary to influenza. Continue with IV fluids, IV steroids. Atorvastatin for cholesterol, Tamiflu for the flu. Albuterol and Atrovent updrafts q.6 hours for COPD. Prognosis is guarded. Please see further orders.
[2016-09-30] MEDS: AMIODARONE 200 MG TAB PO SCH ×2 (11:40→21:16)
--- NOTE | 2016-09-30 11:47 | P.PN ---
Subjective Principal diagnosis: Influenza B Patient seen and examined. Patient states that she has hot because the room is warm. She wishes the temperature can be turned down. She states her breathing is fine. She does not wear oxygen at home. Denies cough, fevers, chills. However she is very confused at this time. Objective - Vital Signs Vital signs: Vital Signs Temp 97.6 F 09/29/16 15:26 Pulse 64 09/30/16 10:03 Resp 22 09/30/16 08:00 BP 131/68 09/30/16 08:00 Pulse Ox 94 L 09/30/16 08:00 Intake & Output 09/29/16 09/30/16 09/30/16 18:59 06:59 18:59 Intake Total 340 Output Total 1950 800 400 Balance -1610 -800 -400 Weight 58.6 kg Intake: Oral 340 Output: Urine 1950 800 400 Other: Voiding Method Bedside Commode Bedside Commode Bedside Commode - Exam Gen.: Patient is alert, no acute distress, confused cardiovascular: Regular rate and rhythm, S1/S2 Lungs: Diminished breath sounds bilaterally Abdomen: Soft nontender nondistended positive bowel sounds Extremities: No edema - Labs CBC & Chem 7: 09/30/16 05:36 09/30/16 05:36 Labs: Abnormal Lab Results - Last 24 Hours (Table) 09/30/16 09/30/16 09/30/16 Range/Units 05:36 05:36 05:36 Neutrophils # 8.1 H (1.3-7.7) k/uL Sodium 136 L (137-145) mmol/L Potassium 3.1 L (3.5-5.1) mmol/L Calcium 7.8 L (8.4-10.2) mg/dL Magnesium 1.5 L (1.6-2.3) mg/dL AST 90 H (14-36) U/L ALT 56 H (9-52) U/L Total Protein 5.6 L (6.3-8.2) g/dL Albumin 2.8 L (3.5-5.0) g/dL Microbiology - Last 24 Hours (Table) 09/28/16 00:30 Urine Culture - Final Urine,Clean Catch Escherichia coli Assessment and Plan Plan: Acute hypoxic respiratory failure Influenza B infection Toxic metabolic encephalopathy Volume overload and congestive heart failure, diastolic, ejection fraction 50-55 % NSTEMI History of tobacco abuse Baseline dementia O2 to maintain saturation greater than equal to 88% Replace electrolytes Bronchodilators and Pulmicort Tamiflu Repeat chest x-ray Incentive spirometry and pulmonary hygiene Monitor labs GI and DVT prophylaxis
--- NOTE | 2016-09-30 15:02 | CDI ---
In responding to this query, please exercise your independent professional judgment. The [facility] Coding Staff and Clinical Documentation Specialists appreciate your assistance in clarifying documentation, maintaining compliance with coding guidelines, accurately documenting patients condition and capturing severity of illness. The fact that a question is asked does not imply that any particular answer is desired or expected. Communication forms are a method of clarifying documentation and are not made part of the Legal Health Record. Thank you in advance for your clarification. Last Revision, October 2015 Keena Reis [address] [place] [address] Documentation Clarification Form Date: 09/30/2016 2:45:00 PM From: Charlee Sean Admit Date: 09/27/2016 3:31:00 PM Patient Name: Tessa To Visit Number: [id number] Discharge Date: Dr. Fady Haines/Ruma Palma [employer] CHF is documented in the progress notes on 09/30/16. History/Risk Factors: dementia Clinical Indicators: presents for evaluation of shortness of breath, weakness and altered mental status. She was found to have positive influenza A. VS/Pulse OX: 118/72 94 28 89 % Echocardiogram Results: EF 55-60 % Chest X Ray: Chronic emphysematous change without acute pulmonary process. Treatment: IV Lasix ASA PO Consults: 09/29/15 Cardiology: Patient developed shortness of breath and had some crackles at the based and seemed to be fluid overloaded treated with Lasix. In your professional opinion, can you please clarify the acuity and type of CHF if known? Acute Chronic Acute on Chronic AND Systolic Diastolic Systolic and Diastolic Cor Pulmonale (Right Sided HF w/ Pulmonary HTN) Unable to determine Other, please specify If known, please specify if Heart Failure is due to: Hypertension Rheumatic Fever Please document in your progress notes and discharge summary in order to capture severity of illness and risk of mortality. Include clinical findings that support your diagnosis. FYI: Press F11 to launch patient chart. Place X here if this finding has no clinical significance, is not applicable or if you are not able to provide any additional documentation. MTDD
[2016-09-30] MEDS: FUROSEMIDE 20 MG TAB PO SCH (15:27)
--- NOTE | 2016-09-30 15:42 | XR ---
EXAMINATION TYPE: XR chest 1V portable DATE OF EXAM: 09/30/2016 3:31 PM HISTORY: Shortness of breath. COMPARISON: 09/27/16 TECHNIQUE: Single view of the chest is submitted. FINDINGS: Demonstrated are scattered senescent parenchymal change. Left lower lobe infiltrate with parapneumonic effusion. Mild patchy density left suprahilar region as well. The right lung is clear. The heart is stable. Hilar and mediastinal structures are within normal limits. Degenerative changes are seen of the dorsal spine. IMPRESSION: 1. Progressive Left lower lobe infiltrate with parapneumonic effusion. Mild patchy density left supr ahilar region as well.
[2016-10-01] MEDS: HEPARIN SODIUM,PORCINE 5,000 UNIT/ML 1 ML VIAL SQ SCH ×4 (01:23→23:09)
[2016-10-01] MEDS: OSELTAMIVIR 75 MG CAP PO SCH ×2 (06:19→19:59)
[2016-10-01] MEDS: BUDESONIDE 0.5 MG/2 ML NEBU INHALATION SCH ×2 (08:25→19:33)
[2016-10-01] MEDS: IPRATROPIUM-ALBUTEROL 3 ML NEB INHALATION SCH ×5 (08:25→19:33)
[2016-10-01] MEDS: ATORVASTATIN 80 MG TAB PO SCH (08:58)
[2016-10-01] MEDS: FAMOTIDINE 20 MG TAB PO SCH ×2 (08:58→21:00)
[2016-10-01] MEDS: ASPIRIN 325 MG TAB PO SCH (08:58)
[2016-10-01] MEDS: FUROSEMIDE 20 MG TAB PO SCH (08:58)
[2016-10-01] MEDS: AMIODARONE 200 MG TAB PO SCH ×2 (09:00→21:00)
[2016-10-01] MEDS: HYDROcodone/APAP 10-325MG 1 EACH TAB PO SCH (09:13)
[2016-10-01 09:43] LABS: Basophils % (A) 0 %; CH 32.2; CHCM 34.3; Eosinophils % (A) 0 %; HCT 39.2 % (34.0-46.0); HDW 2.58; HGB 13.2 gm/dL (11.4-16.0); Luc # (Auto) 0.04; Luc % (Auto) 1; Lymphocytes # (A) 1.2 k/uL (1.0-4.8); Lymphocytes % (A) 15 %; MCH 31.7 pg (25.0-35.0); MCHC 33.6 g/dL (31.0-37.0); MCV 94.3 fL (80.0-100.0); Mean Platelet Volume 7.9; Monocytes # (A) 0.4 k/uL (0-1.0); Monocytes % (A) 5 %; Neutrophils # (A) 6.4 k/uL (1.3-7.7); Neutrophils % (A) 79 %; RBC 4.16 m/uL (3.80-5.40); RDW 13.1 % (11.5-15.5); WBC 8.1 k/uL (3.8-10.6); WBC (Perox) 8.88
[2016-10-01 09:51] LABS: ALT 55 U/L (9-52); AST 76 U/L (14-36); Alkaline Phosphatase 72 U/L (38-126); Anion Gap 9 mmol/L; Blood Urea Nitrogen 9 mg/dL (7-17); Calcium 7.9 mg/dL (8.4-10.2); Carbon Dioxide 28 mmol/L (22-30); Chloride 96 mmol/L (98-107); Glucose 78 mg/dL (74-99); Non-African American GFR(MDRD) >60 (>60 ml/min/1.73 sqM); Potassium 3.9 mmol/L (3.5-5.1); Sodium 133 mmol/L (137-145); Total Bilirubin 1.1 mg/dL (0.2-1.3); Total Protein 5.8 g/dL (6.3-8.2)
[2016-10-01] MEDS ORDERED: FUROSEMIDE 10 MG/ML 2 ML VIAL IV ONE (13:33)
[2016-10-01] MEDS ORDERED: RX INFO: IV CONTRAST WAS GIVEN 1 EACH MISC MISCELLANE PRN (14:43)
[2016-10-01] MEDS ORDERED: diphenhydrAMINE 50 MG/ML 1 ML VIAL IVP ONE (14:56)
[2016-10-01] MEDS ORDERED: methylPREDNISolone SOD SUCCI 125 MG/2 ML VIAL IV ONE (14:56)
[2016-10-01] MEDS ORDERED: FAMOTIDINE 20 MG/2 ML VIAL IV ONE (14:56)
--- NOTE | 2016-10-01 15:03 | P.PN ---
Subjective An 86-year-old female being seen on rounds patient reports experiencing increased shortness of breath with any exertion. There are dry crackles posterior to the bases and pulse ox sat shows on 3 L 94% on room air 87% the d- dimer slightly elevated at 1.3. Patient reports feeling short of breath with any exertion Objective - Vital Signs Vital signs: Vital Signs Temp 98.9 F 10/01/16 14:08 Pulse 71 10/01/16 14:08 Resp 20 10/01/16 14:08 BP 118/70 10/01/16 14:08 Pulse Ox 94 L 10/01/16 14:08 Intake & Output 09/30/16 10/01/16 10/01/16 18:59 06:59 18:59 Intake Total 0 340 Output Total 1200 Balance -1200 340 Weight 58.6 kg Intake: Oral 0 340 Output: Urine 1200 Other: Voiding Method Bedside Commode # Voids 1 3 2 # Bowel Movements 1 - Exam Physical exam 86-year-old female sitting up in bed had just returned from going to the bathroom noted increased shortness of breath with the use of accessory muscles to breathe patient states feels short of breath pulse ox sat on 3 L 92% Lungs posterior dry crackles at the bases otherwise adequate air movement no wheezing no audible wheezing Heart S1-S2 audible and irregular monitor sinus with unifocal PVCs rate controlled denying chest pain Abdomen soft nontender no frequent stooling using bedside commode Extremities no evidence of edema - Labs CBC & Chem 7: 10/01/16 09:11 10/01/16 09:11 Labs: Abnormal Lab Results - Last 24 Hours (Table) 10/01/16 10/01/16 10/01/16 Range/Units 09:11 09:11 14:01 D-Dimer 1.35 H (<0.60) mg/L FEU Sodium 133 L (137-145) mmol/L Chloride 96 L (98-107) mmol/L Calcium 7.9 L (8.4-10.2) mg/dL Magnesium 1.5 L (1.6-2.3) mg/dL AST 76 H (14-36) U/L ALT 55 H (9-52) U/L Total Protein 5.8 L (6.3-8.2) g/dL Albumin 2.9 L (3.5-5.0) g/dL Assessment and Plan Plan: Impression Present on admission shortness of breath suspect due to volume overload congestive heart failure with preserved LV function likely diastolic heart failure fluid overload decompensated Mildly elevated troponin suspect due to influenza Present on admission positive influenza B Present on admission elevated CPK likely due to skeletal muscle breakdown A remote history of nicotine dependency Echocardiogram left ventricular systolic function normal EF 55-60% Echocardiogram mild LVH Hypokalemic electrolyte abnormal Baseline dementia with no behavior disturbance Acute on chronic diastolic congestive heart failure decompensated suspect due to fluid overload Elevated d-dimer Hypo-magnesium Episodes of Cardiac arrhythmias runs of nonsustained V. tach Plan Continue recommendations by pulmonary and cardiology service Potassium to be replaced keep in a therapeutic range Resume home meds as appropriate Continue current aerosol bronchodilators DVT and GI prophylaxis Continue the Tamiflu as ordered Further recommendations pending will follow Will give 20 Lasix IV magnesium to be replaced keep in a therapeutic range The above dictated assessment and findings were discussed with dr avalos Impression and the plan of care have been dictated as directed. Ruma Palma nurse practitioner acting as a scribe for dr avalos
[2016-10-01] MEDS: HYDROcodone/APAP 10-325MG 1 EACH TAB PO PRN (15:12)
[2016-10-01] MEDS: METOPROLOL TARTRATE 12.5 MG TAB PO SCH ×2 (15:14→21:00)
[2016-10-01] MEDS: MAGNESIUM SULFATE-D5W PMX 1 GM in DEXTROSE/WATER 1 100ML.BAG IVPB SCH ×4 (15:32→19:51)
[2016-10-01] MEDS ORDERED: ALBUTEROL NEBULIZED 2.5 MG/3 ML INHALATION SCH (16:00)
--- NOTE | 2016-10-01 17:14 | P.PN ---
Subjective Principal diagnosis: AECOPD, pneumonia Patient seen and examined. Patient states her breathing still isn't very good. She is coughing. She states she feels tired today and would like to sleep. Objective - Vital Signs Vital signs: Vital Signs Temp 98.9 F 10/01/16 14:08 Pulse 78 10/01/16 16:23 Resp 20 10/01/16 14:08 BP 118/70 10/01/16 14:08 Pulse Ox 95 10/01/16 16:06 Intake & Output 09/30/16 10/01/16 10/01/16 18:59 06:59 18:59 Intake Total 0 340 Output Total 1200 Balance -1200 340 Weight 58.6 kg 58.6 kg Intake: Oral 0 340 Output: Urine 1200 Other: Voiding Method Bedside Commode # Voids 1 3 2 # Bowel Movements 1 - Exam Gen.: Patient is alert, no acute distress, confused cardiovascular: Regular rate and rhythm, S1/S2 Lungs: Diminished breath sounds bilaterally Abdomen: Soft nontender nondistended positive bowel sounds Extremities: No edema - Labs CBC & Chem 7: 10/01/16 09:11 10/01/16 09:11 Labs: Abnormal Lab Results - Last 24 Hours (Table) 10/01/16 10/01/16 10/01/16 Range/Units 09:11 09:11 14:01 D-Dimer 1.35 H (<0.60) mg/L FEU Sodium 133 L (137-145) mmol/L Chloride 96 L (98-107) mmol/L Calcium 7.9 L (8.4-10.2) mg/dL Magnesium 1.5 L (1.6-2.3) mg/dL AST 76 H (14-36) U/L ALT 55 H (9-52) U/L Total Protein 5.8 L (6.3-8.2) g/dL Albumin 2.9 L (3.5-5.0) g/dL Assessment and Plan Plan: Acute hypoxic respiratory failure Influenza B infection Possible concomitant bacterial infection Toxic metabolic encephalopathy Volume overload and congestive heart failure, diastolic, ejection fraction 50-55 % NSTEMI History of tobacco abuse Baseline dementia O2 to maintain saturation greater than equal to 88% Replace electrolytes Bronchodilators and Pulmicort Tamiflu Will initiate ABX given new LLL infiltrate: Levaquin Incentive spirometry and pulmonary hygiene Monitor labs GI and DVT prophylaxis
[2016-10-01] MEDS: LEVOFLOXACIN 500MG-D5W PMX 500 MG in DEXTROSE/WATER 1 100ML.BAG IVPB SCH (18:50)
--- NOTE | 2016-10-01 23:16 | CT ---
EXAMINATION TYPE: CT chest angio for PE DATE OF EXAM: 10/01/2016 11:06 PM COMPARISON: NONE HISTORY: Difficulty breathing. CT DLP: 461.00 mGycm Automated exposure control for dose reduction was used. CONTRAST: CT Chest for pulmonary embolism performed with with IV Contrast, patient injected with 60 mL of Visip aque 320. FINDINGS: There is some thoracic kyphotic deformity. There is some pleural thickening and fluid at the left camron g base. There is some patchy infiltrate in the left upper lobe and left lower lobe. I see no filling defects in the pulmonary arteries. There is no evidence of thoracic aortic aneurysm. There are no hil ar masses. There is no mediastinal adenopathy. IMPRESSION: No evidence of pulmonary embolism. Patchy pneumonic infiltrate in the left lower lobe and left upper lobe consistent with pneumonia. Small left pleural effusion.
[2016-10-02] MEDS: BUDESONIDE 0.5 MG/2 ML NEBU INHALATION SCH ×2 (07:58→20:05)
[2016-10-02] MEDS: IPRATROPIUM-ALBUTEROL 3 ML NEB INHALATION SCH ×4 (07:58→20:05)
--- NOTE | 2016-10-02 08:56 | CT ---
EXAMINATION TYPE: CT brain wo con DATE OF EXAM: 10/02/2016 8:39 AM HISTORY: Confusion/NPH per order CT DLP: 1156 mGycm. Automated Exposure Control for Dose Reduction was Utilized. TECHNIQUE: CT scan of the head is performed without contrast. COMPARISON: None. FINDINGS: There is no acute intracranial hemorrhage or midline shift identified. There is diffuse v entricular and sulcal prominence consistent with diffuse age-related cerebral atrophy. Degree of jimmy tricular dilatation is out of proportion to degree of sulcal effacement and a normal pressure hydroce phalus cannot be excluded. There is marked diffuse low-attenuation in the periventricular white matte r presumed on basis of chronic small vessel ischemic change though a component of transependymal flow of CSF is also likely present. The globes are intact and the visualized sinuses are clear. IMPRESSION: No acute intracranial hemorrhage or midline shift. There is mild diffuse age-related ce rebral atrophy with a moderate diffuse hydrocephalus felt present and moderate to severe nonspecific white matter changes likely majority on basis of product of chronic small vessel ischemic change. Cor relation with old outside CT or MRI studies would be beneficial to assess interval change.
[2016-10-02 09:53] LABS: Basophils % (A) 0 %; CH 31.8; CHCM 34.1; Eosinophils % (A) 0 %; HCT 42.9 % (34.0-46.0); HDW 2.48; HGB 14.4 gm/dL (11.4-16.0); Luc # (Auto) 0.08; Luc % (Auto) 1; Lymphocytes # (A) 0.9 k/uL (1.0-4.8); Lymphocytes % (A) 12 %; MCH 31.3 pg (25.0-35.0); MCHC 33.5 g/dL (31.0-37.0); MCV 93.5 fL (80.0-100.0); Mean Platelet Volume 7.6; Monocytes # (A) 0.3 k/uL (0-1.0); Monocytes % (A) 5 %; Neutrophils # (A) 6.2 k/uL (1.3-7.7); Neutrophils % (A) 82 %; RBC 4.59 m/uL (3.80-5.40); RDW 12.8 % (11.5-15.5); WBC 7.5 k/uL (3.8-10.6); WBC (Perox) 8.27
[2016-10-02] MEDS: HYDROcodone/APAP 10-325MG 1 EACH TAB PO SCH (09:59)
[2016-10-02] MEDS: ATORVASTATIN 80 MG TAB PO SCH (09:59)
[2016-10-02] MEDS: FAMOTIDINE 20 MG TAB PO SCH (09:59)
[2016-10-02] MEDS: ASPIRIN 325 MG TAB PO SCH (10:00)
[2016-10-02] MEDS: FUROSEMIDE 20 MG TAB PO SCH (10:00)
[2016-10-02] MEDS: METOPROLOL TARTRATE 12.5 MG TAB PO SCH ×2 (10:00→20:34)
[2016-10-02] MEDS: HEPARIN SODIUM,PORCINE 5,000 UNIT/ML 1 ML VIAL SQ SCH ×2 (10:01→17:56)
[2016-10-02] MEDS: AMIODARONE 200 MG TAB PO SCH ×2 (10:01→20:34)
[2016-10-02] MEDS: OSELTAMIVIR 75 MG CAP PO SCH ×2 (10:01→20:34)
[2016-10-02 10:03] LABS: ALT 52 U/L (9-52); AST 58 U/L (14-36); Alkaline Phosphatase 73 U/L (38-126); Anion Gap 11 mmol/L; Blood Urea Nitrogen 11 mg/dL (7-17); Calcium 7.9 mg/dL (8.4-10.2); Carbon Dioxide 28 mmol/L (22-30); Chloride 90 mmol/L (98-107); Glucose 107 mg/dL (74-99); Magnesium 2.4 mg/dL (1.6-2.3); Non-African American GFR(MDRD) >60 (>60 ml/min/1.73 sqM); Potassium 3.9 mmol/L (3.5-5.1); Sodium 129 mmol/L (137-145); Total Bilirubin 1.2 mg/dL (0.2-1.3); Total Protein 6.3 g/dL (6.3-8.2)
[2016-10-02] MEDS ORDERED: VANCOMYCIN 1,000 MG in SODIUM CHLORIDE 0.9% 250 ML IVPB STA (14:58)
--- NOTE | 2016-10-02 15:04 | P.PN ---
Subjective 86-year-old female being seen by the attending on rounds this morning. noted to be more confused. A neurology consultation has been requested. CAT scan of the brain has been ordered. No acute intracranial hemorrhage or midline shift noted mild diffuse age-related cerebral atrophy with moderate diffuse hydrocephalus felt present in moderate to severe nonspecific white matter changes likely on the basis of chronic small vessel ischemic changes The attending did call the son and talked to the son on the phone this morning and updated on the plan and the clinical findings Objective - Vital Signs Vital signs: Vital Signs Temp 98.7 F 10/02/16 07:00 Pulse 71 10/02/16 08:00 Resp 16 10/02/16 08:00 BP 122/71 10/02/16 07:00 Pulse Ox 94 L 10/02/16 07:00 Intake & Output 10/01/16 10/02/16 10/02/16 18:59 06:59 18:59 Intake Total 100 Output Total 400 Balance 100 -400 Weight 58.6 kg 51.5 kg 51.4 kg Intake: IV 100 Levofloxacin 500Mg-D5w 100 Pmx 500 mg In Dextrose/ Water 1 100ml.bag @ 100 mls/hr IVPB Q24H [facility] Rx#: [id number] Output: Urine 400 Other: Voiding Method Bedside Commode Bedside Commode # Voids 2 2 2 # Bowel Movements 1 1 - Exam Physical exam 86-year-old female sitting up in bed pleasant cooperative oriented to place and self Lungs adequate air movement no wheezing no audible wheezing Heart S1-S2 audible no murmur noted denying chest pain Abdomen soft nontender no frequent stooling using bedside commode Extremities no evidence of edema - Labs CBC & Chem 7: 10/02/16 08:38 10/02/16 08:38 Labs: Abnormal Lab Results - Last 24 Hours (Table) 10/02/16 10/02/16 Range/Units 08:38 08:38 Lymphocytes # 0.9 L (1.0-4.8) k/uL Sodium 129 L (137-145) mmol/L Chloride 90 L (98-107) mmol/L Glucose 107 H (74-99) mg/dL Calcium 7.9 L (8.4-10.2) mg/dL Magnesium 2.4 H (1.6-2.3) mg/dL AST 58 H (14-36) U/L Albumin 3.1 L (3.5-5.0) g/dL Assessment and Plan Plan: Impression Present on admission shortness of breath suspect due to volume overload congestive heart failure with preserved LV function likely diastolic heart failure fluid overload decompensated with left lower lobe pneumonia Mildly elevated troponin suspect due to influenza no evidence of acute coronary syndrome Present on admission positive influenza B Present on admission elevated CPK likely due to skeletal muscle breakdown A remote history of nicotine dependency Echocardiogram left ventricular diastolic function normal EF 55-60% Echocardiogram mild LVH Hypokalemic electrolyte abnormal Baseline dementia with no behavior disturbance Acute on chronic diastolic congestive heart failure decompensated suspect due to fluid overload Elevated d-dimer with a computed tomography scan of the chest no evidence of a pulmonary emboli Hypo-magnesium resolved Episodes of Cardiac arrhythmias runs of nonsustained V. tach resolved CAT scan of the brain no acute process chronic small vessel ischemic changes noted Shortness of breath suspect volume overload and exacerbation congestive heart failure diastolic EF of 50-55% Acute hypoxic respiratory failure resolving suspect due to volume overload Acute toxic metabolic encephalopathy CAT scan of the chest patchy pneumonia infiltrate left lower lobe left upper lobe consistent with pneumonia Plan Await neurology eval Continue IV Levaquin and vancomycin Continue recommendations by pulmonary and cardiology service Potassium to be replaced keep in a therapeutic range Resume home meds as appropriate Continue current aerosol bronchodilators DVT and GI prophylaxis Continue the Tamiflu as ordered Further recommendations pending will follow The above dictated assessment and findings were discussed with dr avalos Impression and the plan of care have been dictated as directed. Ruma Palma nurse practitioner acting as a scribe for dr avalos
--- NOTE | 2016-10-02 15:40 | P.PN ---
Subjective Principal diagnosis: Influenza and pneumonia Patient seen and examined. Patient is laying in bed and appears comfortable. She is easily arousable and states that she is not short of breath. She denies cough. Her nasal cannula is on the floor next to her. Her O2 saturation is checked and is 90% on room air. Objective - Vital Signs Vital signs: Vital Signs Temp 97.1 F L 10/02/16 15:00 Pulse 63 10/02/16 15:00 Resp 18 10/02/16 15:00 BP 128/64 10/02/16 15:00 Pulse Ox 93 L 10/02/16 15:00 Intake & Output 10/01/16 10/02/16 10/02/16 18:59 06:59 18:59 Intake Total 100 Output Total 400 Balance 100 -400 Weight 58.6 kg 51.5 kg 51.4 kg Intake: IV 100 Levofloxacin 500Mg-D5w 100 Pmx 500 mg In Dextrose/ Water 1 100ml.bag @ 100 mls/hr IVPB Q24H [facility] Rx#: [id number] Output: Urine 400 Other: Voiding Method Bedside Commode Bedside Commode # Voids 2 2 2 # Bowel Movements 1 1 - Exam Gen.: Patient is alert, no acute distress, confused cardiovascular: Regular rate and rhythm, S1/S2 Lungs: Diminished breath sounds bilaterally Abdomen: Soft nontender nondistended positive bowel sounds Extremities: No edema - Labs CBC & Chem 7: 10/02/16 08:38 10/02/16 08:38 Labs: Abnormal Lab Results - Last 24 Hours (Table) 10/02/16 10/02/16 Range/Units 08:38 08:38 Lymphocytes # 0.9 L (1.0-4.8) k/uL Sodium 129 L (137-145) mmol/L Chloride 90 L (98-107) mmol/L Glucose 107 H (74-99) mg/dL Calcium 7.9 L (8.4-10.2) mg/dL Magnesium 2.4 H (1.6-2.3) mg/dL AST 58 H (14-36) U/L Albumin 3.1 L (3.5-5.0) g/dL Assessment and Plan Plan: Acute hypoxic respiratory failure Influenza B infection Possible concomitant bacterial infection Toxic metabolic encephalopathy Volume overload and congestive heart failure, diastolic, ejection fraction 50-55 % NSTEMI History of tobacco abuse Baseline dementia O2 to maintain saturation greater than equal to 88% Replace electrolytes Bronchodilators and Pulmicort Tamiflu Will initiate ABX given new LLL infiltrate: Levaquin and vancomycin Incentive spirometry and pulmonary hygiene Monitor labs GI and DVT prophylaxis Will hold Lasix for now, gentle hydration, monitor sodium
[2016-10-02] MEDS: SODIUM CHLORIDE 0.9% 1,000 ML IV SCH (17:56)
[2016-10-02] MEDS: LEVOFLOXACIN 500MG-D5W PMX 500 MG in DEXTROSE/WATER 1 100ML.BAG IVPB SCH (18:58)
--- NOTE | 2016-10-02 19:13 | P.CNNES ---
History of Present Illness Consult date: 10/02/16 History of Present Illness: The patient is an 86-year-old right-handed white female who was admitted to the hospital on September 27 for evaluation of shortness of breath and altered mental status. He was admitted with fever positive influenza COPD exacerbation and dehydration. Apparently on rounds yesterday patient appeared more confused and neurology is requested to evaluate. Computed tomography scan of the brain was done which showed age-related atrophy and ventriculomegaly. Patient is able to speak in and answer questions. She is alert and oriented and denies any headache. She normally walks with her walker. She is hard of hearing and it is difficult to get any detailed information from her. Review of Systems ROS unobtainable: due to mental status Past Medical History Past Medical History: Cancer Additional Past Medical History / Comment(s): 09-27-16 PER EKG-AFIB, AND PER XRAY CHRONIC EMPHYSEMA. BROKE NOSE WHEN A CHILD, SKIN CANCER REMOVED FROM FACE, HAY FEVER, ARHTRITIS RT KNEE, "ULCER FEW YEARS AGO". pt stated her right shoulder was dislocated at , she has very limited control of her right arm , this is her normal History of Any Multi-Drug Resistant Organisms: None Reported Past Surgical History: Joint Replacement, Tonsillectomy Additional Past Surgical History / Comment(s): RT KNEE REPLACMENT, RT FOOT BUNIONECTOMY, SKIN CANCER EMOVED FROM FACE. Past Anesthesia/Blood Transfusion Reactions: No Reported Reaction Additional Past Anesthesia/Blood Transfusion Reaction / Comment(s): DENIED EVER HAVING ANY BLOOD TRANSFUSION. Past Psychological History: No Psychological Hx Reported Additional Psychological History / Comment(s): PT LIV[facility] AT [facility], USES A WALKER WHEN UP, DENIES ANY FALLS. Smoking Status: Current every day smoker Past Alcohol Use History: None Reported Additional Past Alcohol Use History / Comment(s): STARTED SMOKING AT AGE 16, SMOKES LESS THAN 1/2 PPD, ENJOYS 1 MARTINI DAILY W/DINNER. Past Drug Use History: None Reported - Past Family History Father Additional Family Medical History / Comment(s): AT AGE 41 FROM MVA Mother Family Medical History: No Reported History Medications and Allergies Home Medications Medication Instructions Recorded Confirmed Type HYDROcodone/APAP 10-325MG [Mar[place] 1 tab PO DAILY 09/27/16 09/27/16 History 10-325] Allergies Allergy/AdvReac Type Severity Reaction Status Date / Time iodine Allergy Unknown Verified 09/27/16 13:52 Penicillins Allergy Unknown Verified 09/27/16 13:52 Childhood Physical Examination - Vital Signs Vital Signs: Vital Signs Temp Pulse Pulse Pulse Resp BP Pulse Ox 10/02/16 17:13 70 10/02/16 16:58 70 10/02/16 15:00 97.1 F L 63 18 128/64 93 L 10/02/16 08:00 71 70 16 10/02/16 07:00 98.7 F 70 16 122/71 94 L 10/01/16 21:07 97.1 F L 73 20 117/67 93 L Intake and Output 10/02/16 10/02/16 10/02/16 06:59 14:59 22:59 Output Total 400 Balance -400 Output: Urine 400 Other: Voiding Method Bedside Commode # Voids 2 # Bowel Movements 1 1 Weight 51.5 kg 51.4 kg 51.4 kg Patient Weight 10/03/16 06:59 Weight 51.4 kg - Constitutional General appearance: average body habitus - EENT EENT: PERRL, vision intact, hearing diminished - Respiratory Respiratory: lungs clear - Cardiovascular Cardiovascular: regular rate - Neurologic Mental status she was awake she was alert she knew she was in [facility] she was oriented to the year she thought the was August was no a aphasia or dysarthria there was no signs of delirium Cranial nerve examination: PERRL, EOMI, VFF, face symmetric Speech examination: intact Sensorimotor examination: intact Detailed motor examination: grossly full strength in all extremities - Psychiatric Psychiatric: mood/affect appropriate Results - Laboratory Findings CBC and BMP: 10/02/16 08:38 10/02/16 08:38 Abnormal Lab Findings: Abnormal Labs 09/27/16 09/27/16 09/27/16 21:02 21:21 22:32 RBC Hgb Hct Neutrophils # Lymphocytes # APTT 85.0 H D-Dimer Sodium Potassium Chloride BUN Glucose POC Glucose (mg/dL) 194 H Calcium Magnesium AST ALT Total Creatine Kinase 2193 H CK-MB (CK-2) 3.9 H* Troponin I 0.042 H* Total Protein Albumin TSH Urine Appearance Urine Protein Urine Glucose (UA) Urine Ketones Amorphous Sediment Urine Mucus 09/28/16 09/28/16 09/28/16 00:30 01:40 05:40 RBC Hgb Hct Neutrophils # Lymphocytes # 0.7 L APTT D-Dimer Sodium Potassium Chloride BUN Glucose POC Glucose (mg/dL) Calcium Magnesium AST ALT Total Creatine Kinase 2022 H CK-MB (CK-2) 4.9 H* Troponin I 0.046 H* Total Protein Albumin TSH Urine Appearance Cloudy H Urine Protein Trace H Urine Glucose (UA) Trace H Urine Ketones 1+ H Amorphous Sediment Rare H Urine Mucus Rare H 09/28/16 09/28/16 09/28/16 05:40 06:00 06:03 RBC Hgb Hct Neutrophils # Lymphocytes # APTT 83.0 H D-Dimer Sodium Potassium Chloride BUN Glucose POC Glucose (mg/dL) 106 H Calcium Magnesium AST ALT Total Creatine Kinase CK-MB (CK-2) Troponin I Total Protein Albumin TSH 0.307 L Urine Appearance Urine Protein Urine Glucose (UA) Urine Ketones Amorphous Sediment Urine Mucus 09/28/16 09/28/16 09/28/16 11:36 16:32 20:49 RBC Hgb Hct Neutrophils # Lymphocytes # APTT D-Dimer Sodium Potassium Chloride BUN Glucose POC Glucose (mg/dL) 140 H 144 H 181 H Calcium Magnesium AST ALT Total Creatine Kinase CK-MB (CK-2) Troponin I Total Protein Albumin TSH Urine Appearance Urine Protein Urine Glucose (UA) Urine Ketones Amorphous Sediment Urine Mucus 09/29/16 09/29/16 09/29/16 06:11 06:11 06:11 RBC 3.47 L Hgb 11.1 L Hct 33.2 L Neutrophils # Lymphocytes # 0.7 L APTT D-Dimer Sodium Potassium Chloride 109 H BUN 18 H Glucose 105 H POC Glucose (mg/dL) 106 H Calcium 7.7 L Magnesium AST 74 H ALT Total Creatine Kinase CK-MB (CK-2) Troponin I Total Protein 5.3 L Albumin 2.5 L TSH Urine Appearance Urine Protein Urine Glucose (UA) Urine Ketones Amorphous Sediment Urine Mucus 09/30/16 09/30/16 09/30/16 05:36 05:36 05:36 RBC Hgb Hct Neutrophils # 8.1 H Lymphocytes # APTT D-Dimer Sodium 136 L Potassium 3.1 L Chloride BUN Glucose POC Glucose (mg/dL) Calcium 7.8 L Magnesium 1.5 L AST 90 H ALT 56 H Total Creatine Kinase CK-MB (CK-2) Troponin I Total Protein 5.6 L Albumin 2.8 L TSH Urine Appearance Urine Protein Urine Glucose (UA) Urine Ketones Amorphous Sediment Urine Mucus 10/01/16 10/01/16 10/01/16 09:11 09:11 14:01 RBC Hgb Hct Neutrophils # Lymphocytes # APTT D-Dimer 1.35 H Sodium 133 L Potassium Chloride 96 L BUN Glucose POC Glucose (mg/dL) Calcium 7.9 L Magnesium 1.5 L AST 76 H ALT 55 H Total Creatine Kinase CK-MB (CK-2) Troponin I Total Protein 5.8 L Albumin 2.9 L TSH Urine Appearance Urine Protein Urine Glucose (UA) Urine Ketones Amorphous Sediment Urine Mucus 10/02/16 10/02/16 08:38 08:38 RBC Hgb Hct Neutrophils # Lymphocytes # 0.9 L APTT D-Dimer Sodium 129 L Potassium Chloride 90 L BUN Glucose 107 H POC Glucose (mg/dL) Calcium 7.9 L Magnesium 2.4 H AST 58 H ALT Total Creatine Kinase CK-MB (CK-2) Troponin I Total Protein Albumin 3.1 L TSH Urine Appearance Urine Protein Urine Glucose (UA) Urine Ketones Amorphous Sediment Urine Mucus Assessment and Plan (1) Altered mental status Status: Acute Code(s): R41.82 - ALTERED MENTAL STATUS, UNSPECIFIED (2) Acute exacerbation of chronic obstructive airways disease Status: Acute (3) Dementia Status: Chronic Code(s): F03.90 - UNSPECIFIED DEMENTIA WITHOUT BEHAVIORAL DISTURBANCE Plan: Patient is an 86-year-old woman with multiple medical problems admitted with shortness of breath and exacerbation of COPD. She is being treated for influenza virus. She is alert and oriented 3. She does have underlying chronic dementia. She has no focal deficits on examination. CTA reveals age- related changes and probable chronic ventriculomegaly. Recommend PT
[2016-10-03] MEDS: HEPARIN SODIUM,PORCINE 5,000 UNIT/ML 1 ML VIAL SQ SCH ×4 (00:56→23:43)
[2016-10-03] MEDS: FUROSEMIDE 20 MG TAB PO SCH (07:23)
[2016-10-03] MEDS: AMIODARONE 200 MG TAB PO SCH ×2 (07:24→20:47)
[2016-10-03] MEDS: METOPROLOL TARTRATE 12.5 MG TAB PO SCH ×2 (07:24→20:47)
[2016-10-03] MEDS: ATORVASTATIN 80 MG TAB PO SCH (07:24)
[2016-10-03] MEDS: ASPIRIN 325 MG TAB PO SCH (07:24)
--- NOTE | 2016-10-03 07:27 | CONS ---
DATE OF CONSULTATION: 10/02/2016 Reason for consultation is influenza and pneumonia. HISTORY OF PRESENT ILLNESS: The patient is an 86-year-old female who was brought into the ER on 09/27/2016 at [facility] with chief complaints of overall of shortness of breath and mental status changes. No clear history of any fever was recorded on that admission and the patient did have a chest x-ray which shows chronic emphysematous change without any acute pulmonary process. Patient did not have any high-grade fever on admission. She did have influenza PCR, the B came back positive, A was negative. Patient did have some increasing shortness of breath and mental status changes for which the patient did have CT angiogram done on 10/01/2016 that was yesterday. There is no evidence of any pulmonary embolism or patchy pneumonic infiltrates in the left lower lobe and left upper lobe consistent for pneumonia. Patient has been started on vancomycin and Levaquin because of her PENICILLIN allergy. ID was consulted for further recommendation regarding antibiotic therapy. All of this information has been obtained from the review of the chart and talking to the nursing staff as the patient is not a very good historian but not specifically about any shortness of breath she denied. She did have some cough, but not bringing up any sputum. No nausea, vomiting or any diarrhea. History remains to be limited as mentioned above. REVIEW OF SYSTEMS: Could not be reliably obtained. The positive points have been mentioned in the HPI. PAST MEDICAL HISTORY: Significant for A. fib, COPD/emphysema, skin cancer, osteoarthritis. PAST SURGICAL HISTORY: Right knee replacement, right foot bunionectomy, skin grafts from the face and tonsillectomy. SOCIAL HISTORY: The patient is a current every day smoker, no drinking. FAMILY HISTORY: Father at the age of 41 from motor vehicle accident. Allergies to IODINE and PENICILLIN. Medications include the patient is on Tylenol, [place], DuoNeb, amiodarone, aspirin, Lipitor, Pulmicort, Lasix, levofloxacin, Lopressor, Nitrostat and saline. On examination, blood pressure 101/63 with a pulse of 86, temperature of 98. She is 94% on 4 L of nasal cannula. General description is an elderly female, lying in bed in no distress. No tachypnea or accessory muscles of respiration use. HEENT examination, no pallor or scleral icterus, oral mucosa dry. NECK: Trachea central, no thyromegaly. LUNGS: Unlabored breathing. Some coarse breath sounds at the base. No wheeze. HEART: S1, S2. Regular rate and rhythm. ABDOMEN: Soft, no tenderness. EXTREMITIES: No edema of the feet. SKIN EXAMINATION: No rash or mass palpable. NEUROLOGICAL: Patient is awake, alert, oriented x3. Mood and affect normal. LABS: BUN of 11, creatinine 0.57, sodium is 129, hemoglobin is 14.4, white count is 7.5. Urine has been negative. Chest x-ray and CT report as mentioned above. DIAGNOSTIC IMPRESSION AND PLAN: 1. Patient presented to the hospital with difficulty in breathing and also a complaining of mental status changes and the patient did have influenza B PCR positive. Patient with no high-grade fever or elevated white count with subsequently more shortness of breath for which a CT angiogram has been done that was negative for PE; however, did show evidence of left lower lobe infiltrate most likely consistent with pneumonia with a question of possible post influenza pneumonia cannot be entirely excluded. which usually either staphylococcus aureus and less likely pseudomonas pneumonia. 2. Patient does have a PENICILLIN allergy that would limit the number of antibiotics that could be safely used. PLAN: 1. Will try to obtain a sputum for Gram stain culture and sensitivity, so we can order her antibiotics. 2. The patient will continue to Tamiflu to finish a course of therapy. 3. Vancomycin pharmacy to dose with a target of 15 along with Levaquin to provide antibiotic cover for post influenza pneumonia. 4. Will follow up on the clinical condition and cultures to further adjust the medication if needed. Thank you for this consultation. Will follow this patient along with you. TEDDY
[2016-10-03] MEDS: IPRATROPIUM-ALBUTEROL 3 ML NEB INHALATION SCH ×4 (08:12→20:59)
[2016-10-03] MEDS: BUDESONIDE 0.5 MG/2 ML NEBU INHALATION SCH ×2 (08:12→20:59)
[2016-10-03 09:57] LABS: Basophils % (A) 0 %; CH 31.7; CHCM 33.9; Eosinophils % (A) 0 %; HCT 40.9 % (34.0-46.0); HDW 2.56; HGB 13.5 gm/dL (11.4-16.0); Luc % (Auto) 1; Lymphocytes # (A) 1.5 k/uL (1.0-4.8); Lymphocytes % (A) 16 %; MCV 93.9 fL (80.0-100.0); Mean Platelet Volume 7.9; Monocytes # (A) 0.7 k/uL (0-1.0); Monocytes % (A) 7 %; Neutrophils % (A) 75 %; RBC 4.36 m/uL (3.80-5.40); WBC 9.3 k/uL (3.8-10.6); WBC (Perox) 9.53
[2016-10-03] MEDS ORDERED: IV VANCOMYCIN PER PHARMACY 1 EACH MISC MISCELLANE PRN (10:08)
[2016-10-03] MEDS: HYDROcodone/APAP 10-325MG 1 EACH TAB PO SCH (10:13)
[2016-10-03 10:54] LABS: ALT 51 U/L (9-52); AST 50 U/L (14-36); Alkaline Phosphatase 74 U/L (38-126); Anion Gap 8 mmol/L; Blood Urea Nitrogen 17 mg/dL (7-17); Calcium 7.9 mg/dL (8.4-10.2); Carbon Dioxide 33 mmol/L (22-30); Chloride 91 mmol/L (98-107); Glucose 98 mg/dL (74-99); Non-African American GFR(MDRD) >60 (>60 ml/min/1.73 sqM); Potassium 3.2 mmol/L (3.5-5.1); Sodium 132 mmol/L (137-145)
[2016-10-03] MEDS ORDERED: VANCOMYCIN 1,000 MG in SODIUM CHLORIDE 0.9% 250 ML IVPB STA (11:01)
--- NOTE | 2016-10-03 12:30 | CDI ---
In responding to this query, please exercise your independent professional judgment. The [facility] Coding Staff and Clinical Documentation Specialists appreciate your assistance in clarifying documentation, maintaining compliance with coding guidelines, accurately documenting patients condition and capturing severity of illness. The fact that a question is asked does not imply that any particular answer is desired or expected. Communication forms are a method of clarifying documentation and are not made part of the Legal Health Record. Thank you in advance for your clarification. Last Revision, October 2015 Keena Reis [address] [facility] [place] [address] Documentation Clarification Form Date: 10/03/2016 12:02:00 PM From: Charlee Estrada Admit Date: 09/27/2016 3:31:00 PM Patient Name: Tessa To Visit Number: [id number] Discharge Date: Dr. Danuta Becerra Chronic dementia was documented in the consult on 10/02 16 Patient history/risk factors: Skin CA, COPD Clinical indicators: Admit with shortness of breath and altered mental status. Vital signs 118/72 94 28 97.9 Labs: WBC 7.6, BUN 59, CR1.18 Chest X ray: Chronic emphysematous change CT Brain: No acute intracranial hemorrhage or midline shift. There is mild diffuse age-related cerebral atrophy and ventriculomegaly Treatment: Neurological assessment per protocol Monitor Labs Physical Therapist/Occupational Therapist evaluation Neuro Consults: altered mental status, chronic dementia In your professional opinion, can you please further specify the type of Dementia if known? Alzheimers disease (specify if early (presenile) or late (senile) onset) Parkinsons disease Alcohol Senile (specify if with or without confusional state) Vascular (specify if arteriosclerosis or sequel of cerebrovascular disease) Lewy body Other condition or cause of dementia, please specify Unable to determine Please document in your progress notes in order to capture severity of illness and risk of mortality. Include clinical findings that support your diagnosis. FYI: Press F11 to launch patient chart Place X here if this finding has no clinical significance, is not applicable or if you are not able to provide any additional documentation. BRADD
[2016-10-03] MEDS: SODIUM CHLORIDE 0.9% 1,000 ML IV SCH (12:41)
--- NOTE | 2016-10-03 13:34 | P.PN ---
Subjective 86-year-old female being seen this morning with the attending. Currently is resting in bed is pleasant oriented to self and place does have moments of confusion. This been no behavior disturbance. The discharge plan is in progress. Patients being evaluated for subacute rehab [facility] and patient [facility]. Patient did have a CAT scan of the brain done that showed no acute intracranial hemorrhage or midline shift. There is mild diffuse age- related cerebral atrophy and ventriculomegaly. Patient has chronic unspecified dementia without behavioral disturbance Patient has been seen by Dr. Finch infectious disease. Patient did have a CAT scan of the chest done on October 01. There was no evidence of a pulmonary emboli did show patchy pneumonia infiltrates in the left lower lobe and the left upper lobe consistent with pneumonia. Additionally patient's influenza b was PCR positive infectious disease recommends that sputum be attempted to the obtained and sent for culture and sensitivity. Infectious disease initiated antibiotics vancomycin and Levaquin. did complete a course of Tamiflu Objective - Vital Signs Vital signs: Vital Signs Temp 97.4 F L 10/03/16 07:00 Pulse 92 10/03/16 12:30 Resp 16 10/03/16 07:41 BP 121/59 10/03/16 07:00 Pulse Ox 97 10/03/16 07:00 Intake & Output 10/02/16 10/03/16 10/03/16 18:59 06:59 18:59 Intake Total 700 200 Output Total 400 1300 Balance -400 -600 200 Weight 51.4 kg 51.2 kg 51.2 kg Intake: IV 700 200 Sodium Chloride 0.9% 1, 450 200 000 ml @ 50 mls/hr IV . Q20H [facility] Rx#:[id number] Vancomycin 1,000 mg In 250 Sodium Chloride 0.9% 250 ml @ 125 mls/hr IVPB ONCE STA Rx#:[id number] Output: Urine 400 1300 Other: Voiding Method Bedside Commode Bedside Commode Bedside Commode # Voids 2 1 1 # Bowel Movements 1 - Exam Physical exam 86-year-old female sitting up in bed pleasant cooperative oriented to place and self has been cooperative is awake and alert no behavior disturbance Lungs adequate air movement no wheezing no audible wheezing Heart S1-S2 audible no murmur noted denying chest pain Abdomen soft nontender no frequent stooling using bedside commode large purple ecchymotic bruising noted left flank area Extremities no evidence of edema - Labs CBC & Chem 7: 02/09/17 08:58 10/03/16 08:58 Labs: Abnormal Lab Results - Last 24 Hours (Table) 10/03/16 Range/Units 08:58 Sodium 132 L (137-145) mmol/L Potassium 3.2 L (3.5-5.1) mmol/L Chloride 91 L (98-107) mmol/L Carbon Dioxide 33 H (22-30) mmol/L Calcium 7.9 L (8.4-10.2) mg/dL AST 50 H (14-36) U/L Total Protein 6.0 L (6.3-8.2) g/dL Albumin 3.0 L (3.5-5.0) g/dL Assessment and Plan Plan: Impression Present on admission shortness of breath suspect due to volume overload congestive heart failure with preserved LV function likely diastolic heart failure fluid overload decompensated with left lower lobe pneumonia Mildly elevated troponin suspect due to influenza no evidence of acute coronary syndrome Present on admission positive influenza B Present on admission elevated CPK likely due to skeletal muscle breakdown A remote history of nicotine dependency Echocardiogram left ventricular systolic function normal EF 55-60% with mild LVH Debilitated suspect chronic Hypokalemic electrolyte abnormal Baseline dementia with no behavior disturbance suspect chronic nonspecified Acute on chronic diastolic congestive heart failure decompensated suspect due to fluid overload Elevated d-dimer with a computed tomography scan of the chest no evidence of a pulmonary emboli Hypo-magnesium resolved Episodes of Cardiac arrhythmias runs of nonsustained V. tach resolved CAT scan of the brain no acute process chronic small vessel ischemic changes noted Shortness of breath suspect volume overload and exacerbation congestive heart failure diastolic EF of 50-55% Acute hypoxic respiratory failure resolving suspect due to volume overload and left lower lobe pneumonia Acute toxic metabolic encephalopathy CAT scan of the chest patchy pneumonia infiltrate left lower lobe left and upper lobe consistent with pneumonia Plan Collects sputum sent for culture and sensitivity per infectious diseases recommendations Continue IV Levaquin and vancomycin Continue recommendations by pulmonary and cardiology service Potassium to be replaced keep in a therapeutic range Resume home meds as appropriate Continue current aerosol bronchodilators DVT and GI prophylax Further recommendations pending will follow Replace potassium The above dictated assessment and findings were discussed with dr bailey Vera and the plan of care have been dictated as directed. Ruma Palma nurse practitioner acting as a scribe for dr avalos
[2016-10-03] MEDS ORDERED: LEVOFLOXACIN 500 MG TAB PO SCH (14:00)
[2016-10-03] MEDS: POTASSIUM CHLORIDE ER 20 MEQ TAB.ER PO SCH ×2 (16:02→17:23)
--- NOTE | 2016-10-03 18:37 | PN ---
DATE OF SERVICE: 10/03/2016 INTERVAL HISTORY: Patient is an 86-year-old female who is seen sitting up in bed, is awake, alert. When asked if she feels any better, she does not know. Patient is afebrile, tachycardic at times, hemodynamically stable, in no acute distress. PHYSICAL EXAMINATION: VITAL SIGNS: Temperature 97.4, heart rate 92, respiratory rate 16. Blood pressure is 121/59. Oxygen saturation is 97% on 4 L oxygen via nasal cannula. HEENT: Head is normocephalic, atraumatic. NECK: Supple. Trachea is midline. LUNGS: With some rales to the bases. HEART: S1 and S2 are heard. Irregular. Intermittently tachycardic. ABDOMEN: Soft. Bowel sounds are heard. EXTREMITIES: With trace edema. NEUROLOGIC: Patient is awake and alert. LABS: White count 9.3, hemoglobin 13.5, hematocrit 40.9 with 368,000 platelets. Sodium 132, potassium 3.2, chloride 91. CO2 is 33. Anion gap is 8. BUN is 17, creatinine 0.73. Glucose is 98. Calcium 7.9, magnesium 2.0, total bilirubin 1.0, AST 50, ALT 51, alkaline phosphatase 74. Total protein is 6. Albumin is 3. No new imaging to review. IMPRESSION: 1. Acute hypoxic respiratory failure. 2. Influenza B infection. 3. Possible concomitant bacterial infection. 4. Toxic metabolic encephalopathy. 5. Volume overload and congestive heart failure, diastolic; ejection fraction 50% to 55%. 6. Tda-ED-hjfdwjuzl myocardial infarction. 7. History of tobacco abuse. 8. Baseline dementia. 9. Hypokalemia. PLAN: Continue oxygen to maintain saturations greater than or equal to 88%. Continue current medications which have been reviewed with bronchodilators and aerosolized steroids. Potassium is being replaced. Continue the plan with antibiotics per Infectious Disease for left lower lobe infiltrate. Continue incentive spirometry and pulmonary hygiene. Continue GI and DVT prophylaxis. Will follow patient closely with you, making further changes as necessary.
--- NOTE | 2016-10-03 21:24 | EEG ---
DATE OF SERVICE: 10/03/2016 INDICATION FOR EXAMINATION: This patient is an 86-year-old female being evaluated for altered mental status and confusion. AGE: 86 years. EEG FINDINGS: A routine 21-channel awake digital EEG recording was accomplished utilizing the 10-20 international system with bipolar and referential montages. The background activity in the most alert resting state consists of a low to medium amplitude, fairly well developed and well sustained 7-8 Hz activity over the posterior head regions. This posterior rhythm attenuates to eye opening. There is a small amount of low amplitude 18-20 Hz beta activity seen maximally over the anterior head regions. Muscle and movement artifact was observed on a few occasions during the tracing. Hyperventilation was not performed. Photic stimulation at flash frequencies of 2-30 Hz produced a good symmetrical occipital driving response. No epileptiform discharges were seen. IMPRESSION: This EEG is within normal limits for the patient's age. The EEG failed to reveal any focal, lateralized or epileptiform abnormalities. Clinical correlation is recommended.
--- NOTE | 2016-10-03 23:37 | PN ---
DATE OF SERVICE: 10/03/2016 REASON FOR FOLLOWUP: 1. Influenza B. 2. UTI. 3. Possible pneumonia. INTERVAL HISTORY: The patient is afebrile. She is hemodynamically stable. However, the patient remains pleasantly confused and is unable to provide any history. No nausea or vomiting has been noticed or any diarrhea. On examination, blood pressure is 110/53 with a pulse of 73, temperature 98. She is 90% on 2 L nasal cannula. General description is an elderly female lying in bed in no distress. RESPIRATORY SYSTEM: Unlabored breathing. Some decreased breath sounds at the bases. No wheeze. HEART: S1, S2. Regular rate and rhythm. ABDOMEN: Soft. No tenderness. LABS: Hemoglobin is 13.5, white count 9.3 with a BUN of 17, creatinine 0.73. Urine with an E coli. DIAGNOSTIC IMPRESSION AND PLAN: 1. Patient admitted to hospital with mental status changes and difficulty breathing, diagnosed with acute influenza, serology positive for the B subtype, for which the patient is currently on Tamiflu. That will be continued. Patient did have CT angiogram with evidence of left upper and lower lobe infiltrate with a question of possible influenza pneumonia, for which the patient will be continued on Levaquin and vancomycin. Sputum will be collected to narrow down antibiotics. 2. Escherichia coli urinary tract infection, currently covered with Levaquin the patient is already on.
[2016-10-04 07:47] LABS: ALT 53 U/L (9-52); AST 44 U/L (14-36); Alkaline Phosphatase 75 U/L (38-126); Anion Gap 6 mmol/L; Blood Urea Nitrogen 9 mg/dL (7-17); Calcium 8.1 mg/dL (8.4-10.2); Carbon Dioxide 29 mmol/L (22-30); Chloride 98 mmol/L (98-107); Glucose 92 mg/dL (74-99); Magnesium 1.7 mg/dL (1.6-2.3); Non-African American GFR(MDRD) >60 (>60 ml/min/1.73 sqM); Potassium 3.8 mmol/L (3.5-5.1); Sodium 133 mmol/L (137-145); Total Bilirubin 0.9 mg/dL (0.2-1.3); Total Protein 5.6 g/dL (6.3-8.2)
[2016-10-04] MEDS: IPRATROPIUM-ALBUTEROL 3 ML NEB INHALATION SCH ×3 (08:03→15:11)
[2016-10-04] MEDS: BUDESONIDE 0.5 MG/2 ML NEBU INHALATION SCH (08:03)
[2016-10-04] MEDS: ASPIRIN 325 MG TAB PO SCH (08:14)
[2016-10-04] MEDS: AMIODARONE 200 MG TAB PO SCH (08:14)
[2016-10-04] MEDS: METOPROLOL TARTRATE 12.5 MG TAB PO SCH (08:14)
[2016-10-04] MEDS: FUROSEMIDE 20 MG TAB PO SCH (08:14)
[2016-10-04] MEDS: HYDROcodone/APAP 10-325MG 1 EACH TAB PO SCH (08:15)
[2016-10-04] MEDS: ATORVASTATIN 80 MG TAB PO SCH (08:15)
[2016-10-04] MEDS: HEPARIN SODIUM,PORCINE 5,000 UNIT/ML 1 ML VIAL SQ SCH ×2 (08:15→16:06)
[2016-10-04 08:49] LABS: Appearance,Urine Clear (Clear); Bilirubin,Urine Negative (Negative); Glucose,Urine (UA) Negative (Negative); Ketones,Urine Negative (Negative); Leukocyte Esterase,Urine Negative (Negative); Nitrite,Urine Negative (Negative); PH, Urine 7.5 (5.0-8.0); Protein,Urine Negative (Negative); Specific Gravity,Urine 1.007 (1.001-1.035); UA Billing (MACRO vs. MICRO) CHEM; Urobilinogen,Urine <2.0 mg/dL (<2.0)
[2016-10-04] MEDS ORDERED: VANCOMYCIN 1,000 MG in SODIUM CHLORIDE 0.9% 250 ML IVPB SCH ×3 (09:00)
[2016-10-04] MEDS ORDERED: DOCUSATE 100 MG CAP PO SCH (11:15)
[2016-10-04 13:03] VITALS: BMI 20.3
[2016-10-04] MEDS ORDERED: LEVOFLOXACIN 250 MG TAB PO SCH (14:00)
--- NOTE | 2016-10-04 14:31 | P.PN ---
Subjective Principal diagnosis: Influenza pneumonia Patient seen and examined. Patient states she is a little more short of breath today. She is having some wheezing. She has been afebrile. Objective - Vital Signs Vital signs: Vital Signs Temp 98.1 F 10/04/16 07:00 Pulse 76 10/04/16 11:49 Resp 16 10/04/16 07:00 BP 153/91 10/04/16 07:00 Pulse Ox 92 L 10/04/16 07:00 Intake & Output 10/03/16 10/04/16 10/04/16 18:59 06:59 18:59 Intake Total 440 450 Balance 440 450 Weight 51.2 kg 57.153 kg 57.153 kg Intake: IV 200 450 Sodium Chloride 0.9% 1, 200 450 000 ml @ 50 mls/hr IV . Q20H [facility] Rx#:[id number] Oral 240 Other: Voiding Method Bedside Commode Toilet Toilet Bedside Commode Bedside Commode # Voids 5 4 # Bowel Movements 1 - Exam Gen.: Patient is alert, no acute distress, confused cardiovascular: Regular rate and rhythm, S1/S2 Lungs: Diminished breath sounds bilaterally Abdomen: Soft nontender nondistended positive bowel sounds Extremities: No edema - Labs CBC & Chem 7: 10/03/16 08:58 10/04/16 07:20 Labs: Abnormal Lab Results - Last 24 Hours (Table) 10/04/16 Range/Units 07:20 Sodium 133 L (137-145) mmol/L Calcium 8.1 L (8.4-10.2) mg/dL AST 44 H (14-36) U/L ALT 53 H (9-52) U/L Total Protein 5.6 L (6.3-8.2) g/dL Albumin 2.8 L (3.5-5.0) g/dL Assessment and Plan Plan: Acute hypoxic respiratory failure Influenza B infection Possible concomitant bacterial infection Toxic metabolic encephalopathy Volume overload and congestive heart failure, diastolic, ejection fraction 50-55 % NSTEMI History of tobacco abuse Baseline dementia O2 to maintain saturation greater than equal to 88% Replace electrolytes Bronchodilators and Pulmicort Tamiflu Will initiate ABX given new LLL infiltrate: Levaquin and vancomycin Incentive spirometry and pulmonary hygiene Monitor labs Repeat CXR in AM GI and DVT prophylaxis Will hold Lasix for now, gentle hydration, monitor sodium
[2016-10-04] MEDS: SODIUM CHLORIDE 0.9% 1,000 ML IV SCH (14:32)
--- NOTE | 2016-10-04 15:08 | P.DS ---
Providers Date of admission: 09/27/16 15:31 Expected date of discharge: 10/04/16 Attending physician: Fady Avalos Consults: 09/27/16 17:35 Consult Physician Urgent Consulting Provider: Masha Anton Consult Reason/Comments: mi Do you want consulting provider notified?: Yes 09/27/16 17:37 Consult Physician Routine Consulting Provider: Deandra Thrasher Consult Reason/Comments: copd Do you want consulting provider notified?: Yes 10/02/16 07:42 Consult Physician Routine Consulting Provider: Heidy Becerra Consult Reason/Comments: nph/confusion Do you want consulting provider notified?: Yes 10/02/16 14:59 Consult Physician Routine Consulting Provider: Maninder Finch Consult Reason/Comments: pneumonia/flu Do you want consulting provider notified?: Yes Primary care physician: [facility] Course: Patient did present to the emergency room on the day of admission with a chief complaint of shortness of breath and generalized weakness. Patient was found to be positive for influenza B. Patient has been seen by pulmonology service and has been started on updrafts and inhaled steroids additionally a cardiology consultation was requested. There was a question about the atrial fibrillation mild elevated troponin. Cardiology felt that the mild troponin elevation was secondary to the influenza. Patient was given IV Lasix. Echocardiogram was done on the . It showed normal LV systolic function. The monitor showed what appears to be sinus with PVCs. Patient feels less short of breath potassium was low this morning at 3.1 which replacement has been ordered Patient had a CAT scan of the brain it showed no acute intracranial hemorrhage or midline shift. There was diffuse age-related cerebral atrophy and ventral megaly. Patient has chronic unspecified dementia without behavioral changes. It was noted on admission the patient did have a large purple ecchymotic bruise on the right flank area a CAT scan of the chest done on October 01 showed no evidence of a pulmonary emboli. It did show patchy pneumonia infiltrates in the left lower lobe and the left upper lobe consistent with pneumonia. Also the influenza B was positive. Patient was treated with IV broad-spectrum antibiotics per recommendation of infectious disease Additionally daily and neurology consultation was requested. It is noted that the patient is hard of hearing. Has a hearing deficit. Neurology indicate there was no further neurological workup at this time. There was no focal deficits on exam. And as mentioned the CAT scan did show age related changes with probable chronic ventriculomy On the day of discharge from all consulting physicians patient was felt to be appropriate to be discharged to the [facility] facility for subacute rehab Impression Present on admission shortness of breath suspect due to volume overload congestive heart failure with preserved LV function likely diastolic heart failure fluid overload decompensated with left lower lobe pneumonia Mildly elevated troponin suspect due to influenza no evidence of acute coronary syndrome Present on admission positive influenza B Present on admission elevated CPK likely due to skeletal muscle breakdown A remote history of nicotine dependency Echocardiogram left ventricular systolic function normal EF 55-60% with mild LVH Debilitated suspect chronic use of a walker for stable inability Hypokalemic electrolyte abnormal Baseline dementia with no behavior disturbance suspect chronic nonspecified Acute on chronic diastolic congestive heart failure decompensated suspect due to fluid overload Elevated d-dimer with a computed tomography scan of the chest no evidence of a pulmonary emboli Hypo-magnesium resolved Episodes of Cardiac arrhythmias runs of nonsustained V. tach resolved CAT scan of the brain no acute process chronic small vessel ischemic changes noted Shortness of breath suspect volume overload and exacerbation congestive heart failure diastolic EF of 50-55% Acute hypoxic respiratory failure resolving suspect due to volume overload and left lower lobe pneumonia Acute toxic metabolic encephalopathy CAT scan of the chest patchy pneumonia infiltrate left lower lobe left and upper lobe consistent with pneumonia The above dictated assessment and findings were discussed with dr avalos Impression and the plan of care have been dictated as directed. Ruma Palma nurse practitioner acting as a scribe for Dr. Avalos Patient Condition at Discharge: Serious Plan - Discharge Summary New Discharge Prescriptions: Amiodarone [Cordarone] 200 mg PO BID #60 tab Atorvastatin [Lipitor] 80 mg PO DAILY #30 tab HYDROcodone/APAP 10-325MG [[place] 10-325] 1 each PO Q6H PRN #30 tab PRN Reason: Pain HYDROcodone/APAP 10-325MG [[place] 10-325] 1 each PO DAILY #30 tab Levofloxacin [Levaquin] 250 mg PO Q24H #7 tab Discharge Medication List Acetaminophen Tab [Tylenol] 650 mg PO Q6HR PRN #0 tab 10/04/16 [Rx] Amiodarone [Cordarone] 200 mg PO BID #60 tab 10/04/16 [Rx] Aspirin 325 mg PO DAILY tab 10/04/16 [Rx] Atorvastatin [Lipitor] 80 mg PO DAILY #30 tab 10/04/16 [Rx] Docusate [Colace] 100 mg PO DAILY cap 10/04/16 [Rx] Furosemide [Lasix] 20 mg PO DAILY tab 10/04/16 [Rx] HYDROcodone/APAP 10-325MG [[place] 10-325] 1 each PO DAILY #30 tab 10/04/16 [Rx] HYDROcodone/APAP 10-325MG [[place] 10-325] 1 each PO Q6H PRN #30 tab 10/04/16 [Rx] Levofloxacin [Levaquin] 250 mg PO Q24H #7 tab 10/04/16 [Rx] Metoprolol Tartrate [Lopressor] 12.5 mg PO BID tab 10/04/16 [Rx] Nitroglycerin Sl Tabs [Nitrostat] 0.4 mg SUBLINGUAL Q5M PRN #0 tab 10/04/16 [Rx] Follow up Appointment(s)/Referral(s): Fady Avalos MD [Primary Care Provider] - 1-2 days Discharge Disposition: TRANSFER TO SNF/ECF
[2016-10-04 15:51] VITALS: BP 127/60; PULSE 76; RESP 18; TEMP 97.2
[2016-10-04] MEDS: HYDROcodone/APAP 10-325MG 1 EACH TAB PO PRN (16:57)
--- NOTE | 2016-10-04 17:36 | PN ---
DATE OF SERVICE: 10/04/2016 Reason for follow-up: 1. Acute influenza type B. 2. Possible pneumonia. 3. Escherichia coli urinary tract infection. INTERVAL HISTORY: The patient is afebrile. She is more awake, alert today. She is complaining of shortness of breath with mild cough. Denies having any chest pain. No abdominal pain or any diarrhea. On examination, blood pressure is 153/91 with a pulse of 84, temperature 98.1. She is 92% on 2 liters nasal cannula liters. General description is an elderly female up in bed in no distress. RESPIRATORY SYSTEM: Unlabored breathing with decreased breath sounds at bases. No wheeze. HEART: S1, S2. Regular rate and rhythm. ABDOMEN: Soft. No tenderness. LABS: BUN is 9, creatinine 0.59, white count 9.3. Blood culture negative. Sputum not collected. Urine with an E. coli. Repeat urine is negative. DIAGNOSTIC IMPRESSION AND PLAN: 1. Patient admitted to hospital with difficulty breathing, metastatic changes, diagnosed with acute influenza type B for which the patient received adequate Tamiflu of 5 days duration. Now with CT suggestive of the left upper lobe pneumonia, post influenza , sputum was not collected. Blood culture negative. She will be given a week of oral Levaquin. 2. Underlying Escherichia coli urinary tract infection, adequately treated. Repeat urine is negative. [facility]
[2016-10-05] MEDS ORDERED: VANCOMYCIN TROUGH DUE 1 EACH MISC MISCELLANE ONE (08:00)
== END 2016-10-04 17:10 | DRG 193 ==
LOC: EC 13:12 → 6SEL 15:31 → 5MS5E 09-30 12:35
PROVIDERS: ADMIT Family Medicine; ATTEND Family Medicine
DX: J10.08 Influenza due to other identified influenza virus with other specified pneumonia (principal); I50.33 Acute on chronic diastolic (congestive) heart failure; J96.01 Acute respiratory failure with hypoxia; G92 Toxic encephalopathy; I47.2 Ventricular tachycardia; J44.0 Chronic obstructive pulmonary disease with (acute) lower respiratory infection; E83.42 Hypomagnesemia; I07.1 Rheumatic tricuspid insufficiency; N39.0 Urinary tract infection, site not specified; E87.1 Hypo-osmolality and hyponatremia; J44.1 Chronic obstructive pulmonary disease with (acute) exacerbation; B96.20 Unspecified Escherichia coli [E. coli] as the cause of diseases classified elsewhere; E87.6 Hypokalemia; R74.8 Abnormal levels of other serum enzymes; E86.0 Dehydration; H91.90 Unspecified hearing loss, unspecified ear; F03.90 Unspecified dementia, unspecified severity, without behavioral disturbance, psychotic disturbance, mood disturbance, and anxiety; F17.200 Nicotine dependence, unspecified, uncomplicated; I49.3 Ventricular premature depolarization; Z96.651 Presence of right artificial knee joint; Z88.0 Allergy status to penicillin; Z82.49 Family history of ischemic heart disease and other diseases of the circulatory system; Z79.891 Long term (current) use of opiate analgesic; Z91.041 Radiographic dye allergy status; Z85.828 Personal history of other malignant neoplasm of skin
CPT/HCPCS: 36415; 70450; 71010; 71020; 71275; 80053; 80061; 81001; 81003; 82550; 82553; 83036; 83605; 83735; 84100; 84439; 84443; 84484; 85025; 85379; 85610; 85730; 87040; 87077; 87086; 87186; 87502; 93005; 93306; 94640; 94644; 94760; 95816; 96361; 96365; 96368; 96375; 96376; 99291

== ENCOUNTER 2017-03-14 08:52 | Inpatient (IN) | payer MEDICARE, OTHER ==
[2017-03-14] MEDS ORDERED: SODIUM CHLORIDE 0.9% 1,000 ML IV STA (08:58)
--- NOTE | 2017-03-14 09:02 | ED ---
General Adult HPI - General Chief complaint: Arrhythmia/Palpitations Stated complaint: Cardiac Issues Time Seen by Provider: 03/14/17 08:54 Source: patient, EMS, RN notes reviewed, old records reviewed Mode of arrival: EMS Limitations: no limitations - History of Present Illness Initial comments: This is an 78-year-old female here for evaluation. This patient presents for evaluation of low heart rate. Patient states symptomatically, I was found to be low during vital sign check this morning. Patient has no chest pain no about pain no change in medications. No nausea vomiting or diarrhea. No travel history or sick contacts. - Related Data Home Medications Medication Instructions Recorded Confirmed Amiodarone [Cordarone] 200 mg PO DAILY@0900 03/14/17 03/14/17 Aspirin 325 mg PO DAILY@89903/14/17 03/14/17 Atorvastatin [Lipitor] 80 mg PO HS@2100 03/14/17 03/14/17 Docusate [Colace] 100 mg PO DAILY@0900 03/14/17 03/14/17 Furosemide [Lasix] 20 mg PO DAILY@0903/14/17 03/14/17 HYDROcodone/APAP 10-325MG [[place] 1 tab PO Q6H PRN 03/14/17 03/14/17 10-325] Ipratropium-Albuterol Nebulize 3 ml INHALATION RT-TID 03/14/17 03/14/17 [Duoneb 0.5 mg-3 mg/3 ml Soln] Metoprolol Tartrate [Lopressor] 12.5 mg PO BID 03/14/17 03/14/17 Zolpidem [Ambien] 5 mg PO HS@2100 PRN 03/14/17 03/14/17 Previous Rx's Medication Instructions Recorded Acetaminophen Tab [Tylenol] 650 mg PO Q6HR PRN #0 tab 10/04/16 Nitroglycerin Sl Tabs [Nitrostat] 0.4 mg SUBLINGUAL Q5M PRN #0 tab 10/04/16 Allergies Allergy/AdvReac Type Severity Reaction Status Date / Time iodine Allergy Unknown Verified 03/14/17 10:05 Penicillins Allergy Unknown Verified 03/14/17 10:05 Childhood Review of Systems ROS Statement: Those systems with pertinent positive or pertinent negative responses have been documented in the HPI. ROS Other: All systems not noted in ROS Statement are negative. Past Medical History Past Medical History: Cancer Additional Past Medical History / Comment(s): 2-3-17 PER EKG-AFIB, AND PER XRAY CHRONIC EMPHYSEMA. BROKE NOSE WHEN A CHILD, SKIN CANCER REMOVED FROM FACE, HAY FEVER, ARHTRITIS RT KNEE, "ULCER FEW YEARS AGO". pt stated her right shoulder was dislocated at , she has very limited control of her right arm , this is her normal History of Any Multi-Drug Resistant Organisms: None Reported Past Surgical History: Joint Replacement, Tonsillectomy Additional Past Surgical History / Comment(s): RT KNEE REPLACMENT, RT FOOT BUNIONECTOMY, SKIN CANCER EMOVED FROM FACE. Past Anesthesia/Blood Transfusion Reactions: No Reported Reaction Additional Past Anesthesia/Blood Transfusion Reaction / Comment(s): DENIED EVER HAVING ANY BLOOD TRANSFUSION. Past Psychological History: No Psychological Hx Reported Smoking Status: Current every day smoker Past Alcohol Use History: None Reported Past Drug Use History: None Reported - Past Family History Father Additional Family Medical History / Comment(s): AT AGE 41 FROM MVA Mother Family Medical History: No Reported History General Exam Limitations: no limitations General appearance: alert, in no apparent distress Head exam: Present: atraumatic, normocephalic, normal inspection Eye exam: Present: normal appearance, PERRL, EOMI. Absent: scleral icterus, conjunctival injection, periorbital swelling ENT exam: Present: normal exam, mucous membranes moist Neck exam: Present: normal inspection. Absent: tenderness, meningismus, lymphadenopathy Respiratory exam: Present: normal lung sounds bilaterally. Absent: respiratory distress, wheezes, rales, rhonchi, stridor Cardiovascular Exam: Present: normal rhythm, bradycardia, normal heart sounds. Absent: systolic murmur, diastolic murmur, rubs, gallop, clicks GI/Abdominal exam: Present: soft, normal bowel sounds. Absent: distended, tenderness, guarding, rebound, rigid Extremities exam: Present: normal inspection, full ROM, normal capillary refill. Absent: tenderness, pedal edema, joint swelling, calf tenderness Back exam: Present: normal inspection Neurological exam: Present: alert, oriented X3, CN II-XII intact Psychiatric exam: Present: normal affect, normal mood Skin exam: Present: warm, dry, intact, normal color. Absent: rash Course Vital Signs 0703/14/17 03/14/17 08:54 09:02 09:12 Temperature 97.9 F Pulse Rate 29 L 29 L Pulse Rate [ 32 L Right Radial] Respiratory 16 16 Rate Blood Pressure 151/67 142/80 O2 Sat by Pulse 100 99 Oximetry 03/14/17 03/14/17 03/14/17 09:13 09:15 09:16 Temperature Pulse Rate 45 L 61 61 Pulse Rate [ Right Radial] Respiratory Rate Blood Pressure O2 Sat by Pulse Oximetry 03/14/17 03/14/17 03/14/17 09:30 09:41 09:55 Temperature Pulse Rate 63 45 L 55 L Pulse Rate [ Right Radial] Respiratory 18 18 Rate Blood Pressure 130/71 165/72 O2 Sat by Pulse 99 99 Oximetry 03/14/17 03/14/17 03/14/17 10:14 10:34 11:00 Temperature Pulse Rate 41 L 42 L 45 L Pulse Rate [ Right Radial] Respiratory 16 18 16 Rate Blood Pressure 150/59 155/71 131/56 O2 Sat by Pulse 96 98 95 Oximetry - Reevaluation(s) Reevaluation #1: 03/14/17 11:11 Patient remains asymptomatic EKG Findings - EKG Comments: EKG Findings:: EKG shows junctional bradycardia rate of 36, [place] 138, QRS 80, QTC 389 Medical Decision Making - Medical Decision Making 78 female here for evaluation regarding low heart rate. Patient's eye remains at the wrist, does respond to atropine, looks her bradycardia, patient will be admitted for cardiac observation, evaluation and treatment - Lab Data Result diagrams: 03/14/17 09:05 03/14/17 09:05 Lab Results 03/14/17 03/14/17 03/14/17 Range/Units 09:05 09:05 09:05 WBC 7.2 (3.8-10.6) k/uL RBC 3.65 L (3.80-5.40) m/uL Hgb 10.7 L (11.4-16.0) gm/dL Hct 32.9 L (34.0-46.0) % MCV 90.1 (80.0-100.0) fL MCH 29.3 (25.0-35.0) pg MCHC 32.5 (31.0-37.0) g/dL RDW 14.7 (11.5-15.5) % Plt Count 307 (150-450) k/uL Neutrophils % 63 % Lymphocytes % 26 % Monocytes % 5 % Eosinophils % 5 % Basophils % 0 % Neutrophils # 4.5 (1.3-7.7) k/uL Lymphocytes # 1.8 (1.0-4.8) k/uL Monocytes # 0.4 (0-1.0) k/uL Eosinophils # 0.3 (0-0.7) k/uL Basophils # 0.0 (0-0.2) k/uL PT (9.0-12.0) sec INR (<1.2) APTT (22.0-30.0) sec Sodium 135 L (137-145) mmol/L Potassium 4.5 (3.5-5.1) mmol/L Chloride 102 (98-107) mmol/L Carbon Dioxide 28 (22-30) mmol/L Anion Gap 5 mmol/L BUN 14 (7-17) mg/dL Creatinine 0.67 (0.52-1.04) mg/dL Est GFR (MDRD) Af Amer >60 (>60 ml/min/1.73 sqM) Est GFR (MDRD) Non-Af >60 (>60 ml/min/1.73 sqM) Glucose 71 L (74-99) mg/dL Calcium 8.4 (8.4-10.2) mg/dL Phosphorus 3.5 (2.5-4.5) mg/dL Magnesium 2.1 (1.6-2.3) mg/dL Total Bilirubin 0.4 (0.2-1.3) mg/dL AST 26 (14-36) U/L ALT 36 (9-52) U/L Alkaline Phosphatase 99 (38-126) U/L Total Creatine Kinase 72 (30-135) U/L CK-MB (CK-2) 1.6 (0.0-2.4) ng/mL CK-MB (CK-2) Rel Index 2.2 Troponin I <0.012 (0.000-0.034) ng/mL Total Protein 5.9 L (6.3-8.2) g/dL Albumin 3.1 L (3.5-5.0) g/dL TSH 3.170 (0.465-4.680) mIU/L 03/14/17 Range/Units 09:05 WBC (3.8-10.6) k/uL RBC (3.80-5.40) m/uL Hgb (11.4-16.0) gm/dL Hct (34.0-46.0) % MCV (80.0-100.0) fL MCH (25.0-35.0) pg MCHC (31.0-37.0) g/dL RDW (11.5-15.5) % Plt Count (150-450) k/uL Neutrophils % % Lymphocytes % % Monocytes % % Eosinophils % % Basophils % % Neutrophils # (1.3-7.7) k/uL Lymphocytes # (1.0-4.8) k/uL Monocytes # (0-1.0) k/uL Eosinophils # (0-0.7) k/uL Basophils # (0-0.2) k/uL PT 10.6 (9.0-12.0) sec INR 1.0 (<1.2) APTT 22.9 (22.0-30.0) sec Sodium (137-145) mmol/L Potassium (3.5-5.1) mmol/L Chloride (98-107) mmol/L Carbon Dioxide (22-30) mmol/L Anion Gap mmol/L BUN (7-17) mg/dL Creatinine (0.52-1.04) mg/dL Est GFR (MDRD) Af Amer (>60 ml/min/1.73 sqM) Est GFR (MDRD) Non-Af (>60 ml/min/1.73 sqM) Glucose (74-99) mg/dL Calcium (8.4-10.2) mg/dL Phosphorus (2.5-4.5) mg/dL Magnesium (1.6-2.3) mg/dL Total Bilirubin (0.2-1.3) mg/dL AST (14-36) U/L ALT (9-52) U/L Alkaline Phosphatase (38-126) U/L Total Creatine Kinase (30-135) U/L CK-MB (CK-2) (0.0-2.4) ng/mL CK-MB (CK-2) Rel Index Troponin I (0.000-0.034) ng/mL Total Protein (6.3-8.2) g/dL Albumin (3.5-5.0) g/dL TSH (0.465-4.680) mIU/L - Radiology Data Radiology results: report reviewed (Chest x-ray is negative for acute disease), image reviewed Critical Care Time Critical Care Time: Yes Total Critical Care Time: 31 Disposition Clinical Impression: Bradycardia Disposition: ADMITTED IP TO THIS [facility] Referrals: Fady Haines MD [Primary Care Provider] - 1-2 days
[2017-03-14] MEDS: ATROPINE SULFATE 0.1 MG/ML 10ML SYRINGE IV STA ×2 (09:10→09:43)
[2017-03-14 09:27] LABS: Basophils % (A) 0 %; CH 29.7; CHCM 33.1; Eosinophils # (A) 0.3 k/uL (0-0.7); Eosinophils % (A) 5 %; HCT 32.9 % (34.0-46.0); HDW 2.43; HGB 10.7 gm/dL (11.4-16.0); Luc # (Auto) 0.14; Luc % (Auto) 2; Lymphocytes # (A) 1.8 k/uL (1.0-4.8); Lymphocytes % (A) 26 %; MCH 29.3 pg (25.0-35.0); MCHC 32.5 g/dL (31.0-37.0); MCV 90.1 fL (80.0-100.0); Mean Platelet Volume 7.8; Monocytes # (A) 0.4 k/uL (0-1.0); Monocytes % (A) 5 %; Neutrophils # (A) 4.5 k/uL (1.3-7.7); Neutrophils % (A) 63 %; RBC 3.65 m/uL (3.80-5.40); RDW 14.7 % (11.5-15.5); WBC 7.2 k/uL (3.8-10.6); WBC (Perox) 7.04
[2017-03-14 09:31] LABS: Partial Thromboplastin Time 22.9 sec (22.0-30.0); Prothrombin Time 10.6 sec (9.0-12.0)
[2017-03-14 09:39] LABS: ALT 36 U/L (9-52); AST 26 U/L (14-36); Alkaline Phosphatase 99 U/L (38-126); Anion Gap 5 mmol/L; Blood Urea Nitrogen 14 mg/dL (7-17); Calcium 8.4 mg/dL (8.4-10.2); Carbon Dioxide 28 mmol/L (22-30); Chloride 102 mmol/L (98-107); Glucose 71 mg/dL (74-99); Magnesium 2.1 mg/dL (1.6-2.3); Non-African American GFR(MDRD) >60 (>60 ml/min/1.73 sqM); Phosphorous 3.5 mg/dL (2.5-4.5); Potassium 4.5 mmol/L (3.5-5.1); Sodium 135 mmol/L (137-145); Total Bilirubin 0.4 mg/dL (0.2-1.3); Total Protein 5.9 g/dL (6.3-8.2)
[2017-03-14 09:44] LABS: Creatine Kinase 72 U/L (30-135)
[2017-03-14 09:57] LABS: Creatine Kinase MB 1.6 ng/mL (0.0-2.4); Troponin I <0.012 ng/mL (0.000-0.034)
--- NOTE | 2017-03-14 09:57 | XR ---
EXAMINATION TYPE: XR chest 1V portable DATE OF EXAM: 03/14/2017 COMPARISON: 09/30/2016 INDICATION: Short of breath bradycardia TECHNIQUE: Single frontal view of the chest is obtained. FINDINGS: The heart size is enlarged. The pulmonary vasculature is normal. Mild infiltrates at the right costophrenic angle. Atelectasis and pneumonia could be considered. Foll ow-up is recommended. Scoliosis is present. Degenerative changes are at the left shoulder. IMPRESSION: 1. Right lower lobe infiltrate. Correlate for pneumonia. Follow-up is recommended. 2. Mild cardiomegaly
[2017-03-14] MEDS ORDERED: ASPIRIN 81 MG CHEW PO STA (11:06)
[2017-03-14] MEDS ORDERED: NITROGLYCERIN SL TABS 0.4 MG TAB SUBLINGUAL PRN (11:06)
[2017-03-14] MEDS ORDERED: ATROPINE SULFATE 0.1 MG/ML 10ML SYRINGE IV PRN (11:08)
[2017-03-14 11:18] LABS: Appearance,Urine Clear (Clear); Bilirubin,Urine Negative (Negative); Glucose,Urine (UA) Negative (Negative); Ketones,Urine Negative (Negative); Leukocyte Esterase,Urine Negative (Negative); Nitrite,Urine Negative (Negative); PH, Urine 7.5 (5.0-8.0); Protein,Urine Negative (Negative); Specific Gravity,Urine 1.005 (1.001-1.035); UA Billing (MACRO vs. MICRO) CHEM; Urobilinogen,Urine <2.0 mg/dL (<2.0)
--- NOTE | 2017-03-14 14:08 | CONS ---
CHIEF COMPLAINT: Bradycardia. This is a 86-year-old lady who is currently at the [facility] on the [place] and is sent to the hospital because of bradycardia. This was noted on routine physical exam. Did not have any symptoms. Denies chest pain. Difficulty in breathing or palpitations. She apparently had heart rates in the 20s, but here the EKG shows sinus bradycardia with heart rates in the 40s. There is no evidence of high grade AV block. She is amiodarone and Lopressor. I am going to stop the Lopressor and hold the amiodarone at this time. PAST MEDICAL HISTORY: Negative for hypertension, diabetes, dyslipidemia. ALLERGIES: Allergic to PENICILLIN. FAMILY HISTORY: Negative for premature coronary artery disease. SOCIAL HISTORY: Negative for smoking, ETOH abuse or drug abuse. REVIEW OF SYSTEMS: HEENT: Unremarkable. CARDIAC: As described above. RESPIRATORY: Negative. GI: Negative. GENITOURINARY: Negative. MUSCULOSKELETAL: Significant for arthritis. PSYCHOSOCIAL: Negative. ENDOCRINE: Negative. DERM: Negative. CONSTITUTIONAL: Negative. ONCOLOGICAL; Negative. The rest of the system review is not relevant. Medications include Lopressor 12.5 b.i.d., Ambien 5 q.daily, DuoNeb, [place], Lasix, Lipitor, aspirin, Cordarone, Tylenol. Allergic to IODINE and PENICILLIN. On exam, comfortable at rest. Afebrile. Heart rate is 50 beats per minute. Blood pressure is 160/68, respiratory rate is 18. Chest exam reveals diminished air entry at the bases. Heart exam reveals first and second heart sounds. No gallop. Has a systolic murmur at the left lower sternal border. Abdomen is soft. Examination of the extremities did not reveal edema. Peripheral pulses are palpable. An echocardiogram in September of this year showed normal LV systolic function. Rhythm strip showed that the patient is in sinus rhythm. EKG shows sinus bradycardia. ASSESSMENT: 1. Asymptomatic sinus bradycardia. 2. Paroxysmal atrial fibrillation. PLAN: We will hold the metoprolol and the amiodarone. Reviewed echo results. Will watch her overnight and see how she does. I am going to add Norvasc 5 mg daily for blood pressure control. MTDD
[2017-03-14 15:42] LABS: Creatine Kinase 191 U/L (30-135)
[2017-03-14 15:55] LABS: Creatine Kinase MB 2.1 ng/mL (0.0-2.4); Troponin I <0.012 ng/mL (0.000-0.034)
[2017-03-14] MEDS ORDERED: ACETAMINOPHEN TAB 325 MG TAB PO PRN (16:30)
[2017-03-14] MEDS ORDERED: HYDROcodone/APAP 10-325MG 1 EACH TAB PO PRN (16:30)
[2017-03-14] MEDS: amLODIPine 5 MG TAB PO SCH ×2 (19:42→20:30)
[2017-03-14] MEDS: IPRATROPIUM-ALBUTEROL 3 ML NEB INHALATION SCH (20:02)
--- NOTE | 2017-03-14 20:24 | HP ---
CHIEF COMPLAINT: Wbwabu-kwmks-lncl-old white female admitted to the hospital for significant bradycardia. HISTORY OF PRESENT ILLNESS: This is an 86-year-old white female brought to the hospital due to symptomatic bradycardia with near-syncope. She has been treated for COPD and recent influenza pneumonia. She has generalized dementia and osteoarthritis and she has dyslipidemia and COPD. She wears 2 liters of oxygen at home. HOME MEDICATIONS: 1. Ambien. 2. Lopressor. 3. Hope. 4. Lasix. 5. Colace. 6. Lipitor. 7. Aspirin. 8. Cordarone. Her father at age 41 from motor vehicle accident. Mother negative. PHYSICAL EXAM: Temperature 97.9, pulse 29 to 35, respiratory rate 12 to 16, blood pressure 140s to 150s over 60s to 80s. Oxygen 99% to 100% on room air. RESPIRATORY: Normal lung sounds. No rales, rhonchi, stridor. Lungs show wheezes x4. Decreased breath sounds x4. CARDIOVASCULAR: S1, S2. No murmurs, rubs or gallops. [place]. ABDOMEN: Soft. OPHTHALMOLOGIC: Two liters of oxygen by nasal cannula. BACK: Normal to inspection. NEUROLOGIC: Alert and oriented x1. PSYCH: Fair mood and affect. SKIN: No rash, excoriation, bruising. HEAD: Normocephalic, atraumatic. EKG shows ( ) bradycardia in the 30s. She was given atropine x2 in the ER. Hemoglobin is 10.7, white count 7.2. Sodium 135, potassium 4.5. TSH 3.1. Albumin 3.1. Glucose 71. INR 1.0. ASSESSMENT: 1. Symptomatic severe bradycardia with syncopal nature. 2. End-stage chronic obstructive pulmonary disease. 3. Junctional rhythm. 4. Dementia. 5. Paroxysmal atrial fibrillation. Emergent atropine and pacemaker will be needed. Cardiology is consulted. She has dementia. Beta blockers and blood pressure medications will be withheld. Other medicines can be continued, including her updrafts. She has paroxysmal atrial fibrillation. Metoprolol and ( ) will be held anyway. Echo will be ordered. Norvasc for blood pressure will be given. Possible pacemaker. [facility]
[2017-03-14] MEDS: ATORVASTATIN 80 MG TAB PO SCH (20:31)
[2017-03-14] MEDS ORDERED: ZOLPIDEM 5 MG TAB PO PRN (21:00)
[2017-03-15 03:55] LABS: Cholesterol 111 mg/dL (<200); HDL Cholesterol 40 mg/dL (40-60); Triglycerides 74 mg/dL (<150)
[2017-03-15] MEDS ORDERED: ASPIRIN 325 MG TAB PO SCH (09:00)
[2017-03-15] MEDS: IPRATROPIUM-ALBUTEROL 3 ML NEB INHALATION SCH ×3 (09:09→19:37)
[2017-03-15] MEDS: DOCUSATE 100 MG CAP PO SCH (09:17)
[2017-03-15] MEDS: ASPIRIN 81 MG CHEW PO SCH (10:13)
[2017-03-15] MEDS: amLODIPine 5 MG TAB PO SCH (12:22)
[2017-03-15] MEDS: FUROSEMIDE 20 MG TAB PO SCH (12:22)
--- NOTE | 2017-03-15 13:02 | P.PN ---
Subjective Principal diagnosis: Bradycardia Is a pleasant 86-year-old female who resides at [facility] on the [place]. She was brought to the hospital because of bradycardia. Patient had been on beta vinh as well as amiodarone as an outpatient although it is unclear where this was initiated. She had been seen in consultation here by Dr. Grey in the past in the hospital, was found at that time to have atrial tachycardia with suspected A. fib. Although there is no evidence of atrial fibrillation documented at that time. She continues to be in a sinus bradycardia this morning with a heart rate in the 40s to 50s. We will continue to monitor the patient off of amiodarone and beta vinh. She may require implantation of a permanent pacemaker. We will review records from the office as well. TSH level here is normal Objective - Vital Signs Vital signs: Vital Signs Temp 97.9 F 03/15/17 12:00 Pulse 54 L 03/15/17 12:00 Resp 18 03/15/17 12:00 BP 119/56 03/15/17 12:00 Pulse Ox 92 L 03/15/17 12:00 Intake & Output 03/14/17 03/15/17 03/15/17 18:59 06:59 18:59 Intake Total 1000 240 Output Total 700 500 Balance -700 1000 -260 Weight 54.431 kg 63 kg Intake: Intake, IV Titration 1000 Amount Sodium Chloride 0.9% 1, 1000 000 ml @ 100 mls/hr IV . Q10H STA Rx#:[id number] Oral 240 Output: Urine 700 500 Uretheral (Mcbride) 300 Other: Voiding Method Indwelling Catheter Indwelling Catheter Indwelling Catheter # Voids 400 - Exam PHYSICAL EXAMINATION: HEENT: Head is atraumatic, normocephalic. Pupils equal, round. Neck is supple. There is no elevated jugular venous pressure. HEART EXAMINATION: Heart S1, S2 systolic murmur is heard. No murmur or gallop heard. CHEST EXAMINATION: Lungs are clear to auscultation and precussion. No chest wall tenderness is noted on palpation or with deep breathing. ABDOMEN: Soft, nontender. Bowel sounds are heard. No organomegaly noted. EXTREMITIES: 2+ peripheral pulses with no evidence of peripheral edema and no calf tenderness noted. NEUROLOGIC patient is awake, alert and oriented -3. . - Labs CBC & Chem 7: 03/14/17 09:05 03/14/17 09:05 Labs: Abnormal Lab Results - Last 24 Hours (Table) 03/14/17 Range/Units 14:51 Total Creatine Kinase 191 H (30-135) U/L Microbiology - Last 24 Hours (Table) 03/14/17 10:28 Urine Culture - Preliminary Urine,Voided Assessment and Plan Plan: Asessment and Plan #1 asymptomatic sinus bradycardia #2 paroxysmal atrial fibrillation on amiodarone and Lopressor as an outpatient #3 hypertension Plan We will review the office records to determine why the amiodarone was originally initiated, if the patient did have prior A. fib. We will also continue to monitor heart rate, patient may require implantation of a permanent pacemaker.DNP note has been reviewed, I agree with a documented findings and plan of care. Patient was seen and examined.
[2017-03-15] MEDS: ATORVASTATIN 80 MG TAB PO SCH (20:13)
[2017-03-16] MEDS: IPRATROPIUM-ALBUTEROL 3 ML NEB INHALATION SCH ×3 (07:26→20:19)
[2017-03-16] MEDS: FUROSEMIDE 20 MG TAB PO SCH (09:27)
[2017-03-16] MEDS: DOCUSATE 100 MG CAP PO SCH (09:27)
[2017-03-16] MEDS: amLODIPine 5 MG TAB PO SCH (09:27)
[2017-03-16] MEDS: ASPIRIN 81 MG CHEW PO SCH (09:27)
--- NOTE | 2017-03-16 10:05 | PN ---
SUBJECTIVE: 86 year old female admitted with bradycardia. She was taken off Amiodarone and Metoprolol 24 hours ago. She is still has ( ), still has bradycardia into the 30s. Possible pacemaker will be needed. Cardiovascular: S1, S2, lungs clear. GI: Soft. Hematological: Negative Homans. Psych: Fair mood and affect. ASSESSMENT: 1. Severe symptomatic bradycardia. 2. High grade AV block. 3. Chronic obstructive pulmonary disease exacerbation. 4. Generalized debility. Possible pacemaker will be needed. Monitor for the next 24 to 48 hours. Thyroid will be check. Continue with updrafts with albuterol and Atrovent for COPD. MTDD
[2017-03-16] MEDS: ATORVASTATIN 80 MG TAB PO SCH (20:18)
[2017-03-17] MEDS: DOCUSATE 100 MG CAP PO SCH (08:57)
[2017-03-17] MEDS: FUROSEMIDE 20 MG TAB PO SCH (08:57)
[2017-03-17] MEDS: ASPIRIN 81 MG CHEW PO SCH (08:57)
[2017-03-17] MEDS: amLODIPine 5 MG TAB PO SCH (08:57)
[2017-03-17] MEDS: IPRATROPIUM-ALBUTEROL 3 ML NEB INHALATION SCH ×3 (09:10→20:02)
--- NOTE | 2017-03-17 11:31 | PN ---
Mrs. To is an 86-year-old female who was admitted to the hospital with bradycardia. She came from [facility] on the [place]. She was found to be bradycardic with the rate in the 40's. She was on ( ) and beta vinh for suspected ( ) to the atrial fibrillation. Since admission, the patient has been taking all the medications. Her heart rate has improved and closely inching toward 50's. Thyroid function test is within normal limits. She is asymptomatic. Physical examination reveals erythema ( ), does not appear to be in any acute distress. Neck is supple. HEART: S1, S2 heard. Short systolic murmur heard. Lungs appear to be clear. Abdomen is soft. EXTREMITIES: No significant edema. IMPRESSION: 1. Bradycardia which seems to be improving. 2. Bradycardia seems to be ( ) to medications including metoprolol and ( ). 3. Possible paroxysmal atrial fibrillation. 4. Hypertension. PLAN: It is possible that patient may have underlying tachycardic syndrome. At this point we are going to hold the medication and adjust the dose of medication and see if we can get control of ventricle response without any bradycardia. However, if she has documented tachybrady syndrome, patient may need a pacemaker. TEDDY
--- NOTE | 2017-03-17 12:19 | PN ---
SUBJECTIVE: 86-year-old white female with severe bradycardia, COPD severe, hypertension, A. fib, sick sinus syndrome. She remains bradycardic in the 30s for pulse rate. Her heart is irregular irregular rhythm. Lungs are clear but scattered wheeze. She is sitting up in bed. Hematology: Negative Homans. ASSESSMENT: 1. Severe bradycardia. 2. Chronic obstructive pulmonary disease. 3. Hypertension. 4. Sick sinus syndrome. Possible pacemaker will be placed tomorrow. If not placed she will possibly do an outpatient Holter versus being discharged home. Beta-blockers and amiodarone were discontinued two days ago. She was still bradycardic at this time. MTDD
--- NOTE | 2017-03-17 12:47 | P.DS ---
Providers Date of admission: 03/14/17 11:06 Expected date of discharge: 03/17/17 Attending physician: Fady Haines Consults: 03/14/17 11:06 Consult Physician Urgent Consulting Provider: Olivier Hood Consult Reason/Comments: cp Do you want consulting provider notified?: Yes Primary care physician: [facility] Course: bradycardia, holter monitor on discharge, atenolol/amiodirone stopped Patient Condition at Discharge: Fair Plan - Discharge Summary New Discharge Prescriptions: No Action Acetaminophen Tab [Tylenol] 650 mg PO Q6HR PRN #0 tab PRN Reason: Fever And/ Or Pain Nitroglycerin Sl Tabs [Nitrostat] 0.4 mg SUBLINGUAL Q5M PRN #0 tab PRN Reason: Chest Pain Zolpidem [Ambien] 5 mg PO HS@2100 PRN PRN Reason: Insomnia Metoprolol Tartrate [Lopressor] 12.5 mg PO BID Ipratropium-Albuterol Nebulize [Duoneb 0.5 mg-3 mg/3 ml Soln] 3 ml INHALATION RT-TID Docusate [Colace] 100 mg PO DAILY@0900 Amiodarone [Cordarone] 200 mg PO DAILY@0900 HYDROcodone/APAP 10-325MG [[place] 10-325] 1 tab PO Q6H PRN PRN Reason: Pain Aspirin 325 mg PO DAILY@0900 Furosemide [Lasix] 20 mg PO DAILY@0900 Atorvastatin [Lipitor] 80 mg PO HS@2100 Discharge Medication List Acetaminophen Tab [Tylenol] 650 mg PO Q6HR PRN #0 tab 10/04/16 [Rx] Nitroglycerin Sl Tabs [Nitrostat] 0.4 mg SUBLINGUAL Q5M PRN #0 tab 10/04/16 [Rx] Aspirin 325 mg PO DAILY@89903/14/17 [History] Atorvastatin [Lipitor] 80 mg PO HS@2100 03/14/17 [History] Docusate [Colace] 100 mg PO DAILY@89903/14/17 [History] Furosemide [Lasix] 20 mg PO DAILY@0903/14/17 [History] HYDROcodone/APAP 10-325MG [[place] 10-325] 1 tab PO Q6H PRN 03/14/17 [History] Ipratropium-Albuterol Nebulize [Duoneb 0.5 mg-3 mg/3 ml Soln] 3 ml INHALATION RT -TID 03/14/17 [History] Zolpidem [Ambien] 5 mg PO HS@2100 PRN 03/14/17 [History] Follow up Appointment(s)/Referral(s): Fady Haines MD [Primary Care Provider] - 1-2 days
--- NOTE | 2017-03-17 15:11 | P.PN ---
Subjective Principal diagnosis: Bradycardia Is a pleasant 86-year-old female who resides at [facility] on the [place]. She was brought to the hospital because of bradycardia. Patient had been on beta vinh as well as amiodarone as an outpatient although it is unclear where this was initiated. She had been seen in consultation here by Dr. Grey in the past in the hospital, was found at that time to have atrial tachycardia with suspected A. fib. Although there is no evidence of atrial fibrillation documented at that time. She continues to be in a sinus bradycardia this morning with a heart rate in the 40s to 50s. We will continue to monitor the patient off of amiodarone and beta vinh. She may require implantation of a permanent pacemaker. We will review records from the office as well. TSH level here is normal 03/17/2017 Patient seen and examined this morning, overall feeling well, denies any dizziness or lightheadedness. Heart rate remaining in the 40s, mostly in the high 40s. Asymptomatic. Patient may be able to be discharged home. She's been recommended to wear a 30 day event monitor on discharge and follow-up with Dr. Kuo in the office post discharge. Objective - Vital Signs Vital signs: Vital Signs Temp 97.1 F L 03/17/17 11:49 Pulse 48 L 03/17/17 11:49 Resp 15 03/17/17 11:49 BP 126/58 03/17/17 11:49 Pulse Ox 94 L 03/17/17 11:49 Intake & Output 03/16/17 03/17/17 03/17/17 18:59 06:59 18:59 Intake Total 225 298 Output Total 500 Balance 225 -500 298 Weight 58.7 kg Intake: Oral 225 298 Output: Urine 500 Other: Voiding Method Indwelling Catheter Indwelling Catheter Indwelling Catheter - Exam PHYSICAL EXAMINATION: HEENT: Head is atraumatic, normocephalic. Pupils equal, round. Neck is supple. There is no elevated jugular venous pressure. HEART EXAMINATION: Heart S1, S2 systolic murmur is heard. No murmur or gallop heard. CHEST EXAMINATION: Lungs are clear to auscultation and precussion. No chest wall tenderness is noted on palpation or with deep breathing. ABDOMEN: Soft, nontender. Bowel sounds are heard. No organomegaly noted. EXTREMITIES: 2+ peripheral pulses with no evidence of peripheral edema and no calf tenderness noted. NEUROLOGIC patient is awake, alert and oriented -3. . - Labs CBC & Chem 7: 03/14/17 09:05 03/14/17 09:05 Assessment and Plan Plan: Asessment and Plan #1 asymptomatic sinus bradycardia #2 paroxysmal atrial fibrillation on amiodarone and Lopressor as an outpatient #3 hypertension Plan Patient may be able to be discharged home today. We will continue to hold the Lopressor and amiodarone. Patient will have a 30 day event monitor on discharge and will follow-up with Dr. Kuo in the office.
[2017-03-17] MEDS: ATORVASTATIN 80 MG TAB PO SCH (20:47)
[2017-03-17 23:57] LABS: Basophils % (A) 1 %; CH 29.3; CHCM 32.7; Eosinophils # (A) 0.2 k/uL (0-0.7); Eosinophils % (A) 3 %; HCT 33.3 % (34.0-46.0); HDW 2.35; HGB 10.9 gm/dL (11.4-16.0); Luc # (Auto) 0.15; Luc % (Auto) 2; Lymphocytes # (A) 2.1 k/uL (1.0-4.8); Lymphocytes % (A) 27 %; MCH 29.4 pg (25.0-35.0); MCHC 32.7 g/dL (31.0-37.0); MCV 89.9 fL (80.0-100.0); Mean Platelet Volume 7.4; Monocytes # (A) 0.4 k/uL (0-1.0); Monocytes % (A) 5 %; Neutrophils # (A) 4.9 k/uL (1.3-7.7); Neutrophils % (A) 63 %; RDW 14.6 % (11.5-15.5); WBC 7.8 k/uL (3.8-10.6); WBC (Perox) 7.96
[2017-03-18 00:07] LABS: Anion Gap 8 mmol/L; Blood Urea Nitrogen 17 mg/dL (7-17); Calcium 8.4 mg/dL (8.4-10.2); Carbon Dioxide 26 mmol/L (22-30); Chloride 97 mmol/L (98-107); Glucose 81 mg/dL (74-99); Non-African American GFR(MDRD) >60 (>60 ml/min/1.73 sqM); Potassium 4.2 mmol/L (3.5-5.1); Sodium 131 mmol/L (137-145)
[2017-03-18 05:15] LABS: Appearance,Urine Clear (Clear); Bilirubin,Urine Negative (Negative); Glucose,Urine (UA) Negative (Negative); Ketones,Urine Negative (Negative); Leukocyte Esterase,Urine Negative (Negative); Nitrite,Urine Negative (Negative); PH, Urine 7.5 (5.0-8.0); Protein,Urine Negative (Negative); Specific Gravity,Urine 1.005 (1.001-1.035); UA Billing (MACRO vs. MICRO) CHEM; Urobilinogen,Urine <2.0 mg/dL (<2.0)
[2017-03-18] MEDS: IPRATROPIUM-ALBUTEROL 3 ML NEB INHALATION SCH ×3 (09:02→21:06)
[2017-03-18] MEDS: FUROSEMIDE 20 MG TAB PO SCH (09:45)
[2017-03-18] MEDS: DOCUSATE 100 MG CAP PO SCH (09:45)
[2017-03-18] MEDS: amLODIPine 5 MG TAB PO SCH (09:45)
[2017-03-18] MEDS: ASPIRIN 81 MG CHEW PO SCH (09:45)
--- NOTE | 2017-03-18 13:04 | PN ---
SUBJECTIVE: An 86-year-old white female with bradycardia, ( ) on metoprolol , this was continued 2 to 3 days ago. Patient will be followed up as an outpatient. Holter monitor per Cardiology and patient is safe to go home at this time with a Holter monitor. Follow up as an outpatient. Continue updraft treatments for COPD exacerbation, mojgan cardiac, Holter monitor. Any dizziness come back to the ER. MTDD
--- NOTE | 2017-03-18 15:38 | P.PN ---
Subjective Principal diagnosis: Bradycardia Is a pleasant 86-year-old female who resides at [facility] on the [place]. She was brought to the hospital because of bradycardia. Patient had been on beta vinh as well as amiodarone as an outpatient although it is unclear where this was initiated. She had been seen in consultation here by Dr. Grey in the past in the hospital, was found at that time to have atrial tachycardia with suspected A. fib. Although there is no evidence of atrial fibrillation documented at that time. She continues to be in a sinus bradycardia this morning with a heart rate in the 40s to 50s. We will continue to monitor the patient off of amiodarone and beta vinh. She may require implantation of a permanent pacemaker. We will review records from the office as well. TSH level here is normal 03/17/2017 Patient seen and examined this morning, overall feeling well, denies any dizziness or lightheadedness. Heart rate remaining in the 40s, mostly in the high 40s. Asymptomatic. Patient may be able to be discharged home. She's been recommended to wear a 30 day event monitor on discharge and follow-up with Dr. Kuo in the office post discharge. 03/18 2017 seen and examined this morning, he continues to be in the 40s but does go up into the 50s even low 60s at times. Patient denies any dizziness or lightheadedness. Objective - Vital Signs Vital signs: Vital Signs Temp 96.8 F L 03/18/17 12:00 Pulse 62 03/18/17 12:00 Resp 18 03/18/17 12:00 BP 102/57 03/18/17 12:00 Pulse Ox 94 L 03/18/17 12:00 Intake & Output 03/17/17 03/18/17 03/18/17 18:59 06:59 18:59 Intake Total 478 365 Output Total 100 700 Balance 378 -700 365 Weight 58.6 kg Intake: Oral 478 365 Output: Urine 100 700 Other: Voiding Method Indwelling Catheter Indwelling Catheter Indwelling Catheter - Exam PHYSICAL EXAMINATION: HEENT: Head is atraumatic, normocephalic. Pupils equal, round. Neck is supple. There is no elevated jugular venous pressure. HEART EXAMINATION: Heart S1, S2 systolic murmur is heard. No murmur or gallop heard. CHEST EXAMINATION: Lungs are clear to auscultation and precussion. No chest wall tenderness is noted on palpation or with deep breathing. ABDOMEN: Soft, nontender. Bowel sounds are heard. No organomegaly noted. EXTREMITIES: 2+ peripheral pulses with no evidence of peripheral edema and no calf tenderness noted. NEUROLOGIC patient is awake, alert and oriented -3. . - Labs CBC & Chem 7: 03/17/17 23:32 03/17/17 23:32 Labs: Abnormal Lab Results - Last 24 Hours (Table) 03/17/17 03/17/17 Range/Units 23:32 23:32 RBC 3.70 L (3.80-5.40) m/uL Hgb 10.9 L (11.4-16.0) gm/dL Hct 33.3 L (34.0-46.0) % Sodium 131 L (137-145) mmol/L Chloride 97 L (98-107) mmol/L Assessment and Plan Plan: Asessment and Plan #1 asymptomatic sinus bradycardia #2 paroxysmal atrial fibrillation on amiodarone and Lopressor as an outpatient #3 hypertension Plan Patient may be able to be discharged home today. We will continue to hold the Lopressor and amiodarone. Patient will have a 30 day event monitor on discharge and will follow-up with Dr. Kuo in the office.
[2017-03-18] MEDS: ATORVASTATIN 80 MG TAB PO SCH (21:16)
[2017-03-19] MEDS: IPRATROPIUM-ALBUTEROL 3 ML NEB INHALATION SCH ×2 (09:06→13:06)
[2017-03-19 09:08] VITALS: RESP 16; TEMP 97.6
[2017-03-19] MEDS: FUROSEMIDE 20 MG TAB PO SCH (09:11)
[2017-03-19] MEDS: DOCUSATE 100 MG CAP PO SCH (09:11)
[2017-03-19] MEDS: ASPIRIN 81 MG CHEW PO SCH (09:11)
[2017-03-19 12:05] VITALS: BP 121/79; PULSE 67
[2017-03-19] MEDS: amLODIPine 5 MG TAB PO SCH (12:06)
--- NOTE | 2017-03-19 13:29 | PN ---
DATE OF SERVICE: 03/18/2017 SUBJECTIVE: This is a 86-year-old white female admitted with bradycardia of significant nature. Heart rate is in the 40s to 50s. She is suppose to get a ( ) monitor. Await discharge planning. CARDIOVASCULAR: S1 and S2, mojgan. Lungs are clear. Scattered wheeze x4. GI: Soft. HEMATOLOGY: Negative Homans. PSYCH: Alert and oriented x2. ASSESSMENT: 1. Dementia. 2. Sinus bradycardia, slightly improved. 3. Chronic obstructive pulmonary disease. 4. Gait disturbance. PLAN: Await discharge planning. After Holter monitor is placed, patient will be discharged home and follow up outpatient in the [facility]. TEDDY
== END 2017-03-19 15:18 | disposition home or self-care (01) | DRG 309 ==
LOC: EC 08:52 → 6SEL 11:06
PROVIDERS: ADMIT Family Medicine; ATTEND Family Medicine
DX: R00.1 Bradycardia, unspecified (principal); J44.1 Chronic obstructive pulmonary disease with (acute) exacerbation; F03.90 Unspecified dementia, unspecified severity, without behavioral disturbance, psychotic disturbance, mood disturbance, and anxiety; E78.5 Hyperlipidemia, unspecified; F17.200 Nicotine dependence, unspecified, uncomplicated; I10 Essential (primary) hypertension; I44.30 Unspecified atrioventricular block; I48.0 Paroxysmal atrial fibrillation; M19.90 Unspecified osteoarthritis, unspecified site; R01.1 Cardiac murmur, unspecified; R26.9 Unspecified abnormalities of gait and mobility; T44.7X5A Adverse effect of beta-adrenoreceptor antagonists, initial encounter; T46.2X5A Adverse effect of other antidysrhythmic drugs, initial encounter; Z79.82 Long term (current) use of aspirin; Z79.899 Other long term (current) drug therapy; Z85.828 Personal history of other malignant neoplasm of skin; Z99.81 Dependence on supplemental oxygen; Z88.0 Allergy status to penicillin; Z91.041 Radiographic dye allergy status; Y92.009 Unspecified place in unspecified non-institutional (private) residence as the place of occurrence of the external cause
CPT/HCPCS: 36415; 71010; 80048; 80053; 80061; 81003; 82550; 82553; 83735; 84100; 84443; 84484; 85025; 85610; 85730; 87086; 93005; 94640; 94760; 96361; 96374; 99291

== ENCOUNTER 2018-01-20 09:36 | Observation (INO) | payer MEDICARE, OTHER ==
[2018-01-20] MEDS: MORPHINE SULFATE 4 MG/ML SYRINGE IVP STA ×2 (11:17→14:22)
[2018-01-20 12:10] LABS: Basophils % (A) 0 %; Eosinophils # (A) 0.2 k/uL (0-0.7); Eosinophils % (A) 2 %; HGB 11.4 gm/dL (11.4-16.0); Lymphocytes % (A) 18 %; MCH 28.9 pg (25.0-35.0); MCHC 32.7 g/dL (31.0-37.0); MCV 88.3 fL (80.0-100.0); Mean Platelet Volume 6.5; Monocytes # (A) 0.4 k/uL (0-1.0); Monocytes % (A) 3 %; Neutrophils # (A) 8.5 k/uL (1.3-7.7); Neutrophils % (A) 76 %; Platelet Count 358 k/uL (150-450); RBC 3.96 m/uL (3.80-5.40); RDW 13.7 % (11.5-15.5); WBC 11.2 k/uL (3.8-10.6)
[2018-01-20 12:12] LABS: Appearance,Urine Clear (Clear); Bilirubin,Urine Negative (Negative); Blood,Urine Negative (Negative); Color,Urine Yellow; Glucose,Urine (UA) Negative (Negative); Ketones,Urine Negative (Negative); Leukocyte Esterase,Urine Negative (Negative); Nitrite,Urine Negative (Negative); PH, Urine 7.5 (5.0-8.0); Protein,Urine Negative (Negative); Specific Gravity,Urine 1.012 (1.001-1.035); Urobilinogen,Urine <2.0 mg/dL (<2.0)
[2018-01-20 12:20] LABS: Partial Thromboplastin Time 22.3 sec (22.0-30.0); Prothrombin Time 9.9 sec (9.0-12.0)
[2018-01-20 12:23] LABS: ALT 19 U/L (9-52); AST 27 U/L (14-36); Albumin 3.5 g/dL (3.5-5.0); Alkaline Phosphatase 90 U/L (38-126); Anion Gap 8 mmol/L; Blood Urea Nitrogen 11 mg/dL (7-17); Calcium 8.5 mg/dL (8.4-10.2); Carbon Dioxide 26 mmol/L (22-30); Chloride 98 mmol/L (98-107); Glucose 106 mg/dL (74-99); Sodium 132 mmol/L (137-145); Total Bilirubin 0.6 mg/dL (0.2-1.3); Total Protein 6.7 g/dL (6.3-8.2)
[2018-01-20 12:26] LABS: Potassium 4.9 mmol/L (3.5-5.1)
[2018-01-20 12:50] LABS: Creatine Kinase MB 2.2 ng/mL (0.0-2.4)
--- NOTE | 2018-01-20 12:50 | XR ---
EXAMINATION TYPE: XR tibia fibula LT DATE OF EXAM: 01/20/2018 CLINICAL HISTORY: pain TECHNIQUE: AP and lateral images of the left tibia and fibula are obtained. COMPARISON: None. FINDINGS: There is no acute fracture/dislocation evident. The joint spaces appear within normal michael its. Soft tissue lacerations without evidence for radiopaque foreign body. IMPRESSION: There is no acute fracture or dislocation seen. ICD 10 NO FRACTURE, INITIAL EVALUATION
--- NOTE | 2018-01-20 12:51 | XR ---
EXAMINATION TYPE: XR pelvis AP view DATE OF EXAM: 01/20/2018 CLINICAL HISTORY: pain TECHNIQUE: Single view the pelvis is submitted. FINDINGS: No evidence for fracture, dislocation or bony lesion. Joint spaces are well-preserved. S I joints appear symmetric. IMPRESSION: 1. No acute fracture or dislocation seen. ICD 10 NO FRACTURE, INITIAL EVALUATION
--- NOTE | 2018-01-20 12:53 | XR ---
EXAMINATION TYPE: XR chest 1V portable DATE OF EXAM: 01/20/2018 HISTORY: Shortness of breath. COMPARISON: 03/13/2017 TECHNIQUE: Single view of the chest is submitted. FINDINGS: Demonstrated are scattered senescent parenchymal change. There is no evidence for focal infiltrate. The heart is stable. Hilar and mediastinal structures are within normal limits. Degenerative changes are seen of the dorsal spine. IMPRESSION: 1. Chronic changes without evidence for acute pulmonary disease.
--- NOTE | 2018-01-20 12:53 | XR ---
EXAMINATION TYPE: XR abdomen 1V DATE OF EXAM: 01/20/2018 COMPARISON: NONE HISTORY: Pain TECHNIQUE: Single supine KUB image of the abdomen is obtained FINDINGS: Small bowel demonstrates no evidence for dilatation or air fluid levels. Gas and fecal material is seen in non-distended colon. No convincing evidence for pneumoperitoneum. Suspect infrarenal abdominal aortic aneurysm measuring at least 5.[address] correlation if fe lt to be indicated. The lung bases are clear. The osseous structures are intact. IMPRESSION: 1. Overall nonobstructive bowel gas pattern. 2.Suspect infrarenal abdominal aortic aneurysm measuring at least 5.[address] correlation if felt to be indicated.
[2018-01-20] MEDS ORDERED: RX INFO: IV CONTRAST WAS GIVEN 1 EACH MISC MISCELLANE PRN (13:16)
--- NOTE | 2018-01-20 13:32 | ED ---
Fall HPI <Paola Sorensen - Last Filed: 01/20/18 16:30> - General Source: patient, family, EMS, RN notes reviewed Mode of arrival: EMS - History of Present Illness MD Complaint: fall <Kanu Lopez - Last Filed: 01/20/18 17:54> - General Chief Complaint: Fall Stated Complaint: Fall Time Seen by Provider: 01/20/18 10:00 - History of Present Illness Initial Comments: This is a 87-year-old female who was in the bathroom and fell. She is hard of hearing but per her son she stated her legs gave out on her. It is unclear whether she passed out or just had sudden leg weakness. She also complains of some pain to her lower abdomen pelvic region is some radiation down the right leg. She sustained a laceration of left eyebrow and avulsion injury to her left fult[place]. No report of any seizure activity no focal loss of function to the upper or lower extremities (JohnKanu) - Related Data Home Medications Medication Instructions Recorded Confirmed Docusate [Colace] 100 mg PO DAILY@89903/14/17 01/20/18 Furosemide [Lasix] 20 mg PO DAILY@89903/14/17 01/20/18 Ipratropium-Albuterol Nebulize 3 ml INHALATION RT-TID 03/14/17 01/20/18 [Duoneb 0.5 mg-3 mg/3 ml Soln] Aspirin [Adult Low Dose Aspirin EC] 81 mg PO DAILY@89901/20/18 01/20/18 Exuderm 1 applic TOPICAL Q72H 01/20/18 01/20/18 amLODIPine [Norvasc] 5 mg PO DAILY@89901/20/18 01/20/18 Previous Rx's Medication Instructions Recorded Acetaminophen Tab [Tylenol] 650 mg PO Q6HR PRN #0 tab 10/04/16 Nitroglycerin Sl Tabs [Nitrostat] 0.4 mg SUBLINGUAL Q5M PRN #0 tab 10/04/16 Allergies Allergy/AdvReac Type Severity Reaction Status Date / Time iodine Allergy Unknown Verified 01/20/18 10:42 Penicillins Allergy Unknown Verified 01/20/18 10:42 Childhood Review of Systems ROS Other: All systems not noted in ROS Statement are negative. <Paola Sorensen - Last Filed: 01/20/18 16:30> ROS Other: All systems not noted in ROS Statement are negative. <Kanu Lopez - Last Filed: 01/20/18 17:54> ROS Statement: Those systems with pertinent positive or pertinent negative responses have been documented in the HPI. Past Medical History Past Medical History: Cancer Additional Past Medical History / Comment(s): 2-3-17 PER EKG-AFIB, AND PER XRAY CHRONIC EMPHYSEMA. BROKE NOSE WHEN A CHILD, SKIN CANCER REMOVED FROM FACE, HAY FEVER, ARHTRITIS RT KNEE, "ULCER FEW YEARS AGO". pt stated her right shoulder was dislocated at , she has very limited control of her right arm , this is her normal History of Any Multi-Drug Resistant Organisms: None Reported Past Surgical History: Joint Replacement, Tonsillectomy Additional Past Surgical History / Comment(s): RT KNEE REPLACMENT, RT FOOT BUNIONECTOMY, SKIN CANCER EMOVED FROM FACE. Past Anesthesia/Blood Transfusion Reactions: No Reported Reaction Additional Past Anesthesia/Blood Transfusion Reaction / Comment(s): DENIED EVER HAVING ANY BLOOD TRANSFUSION. Past Psychological History: No Psychological Hx Reported Smoking Status: Former smoker Past Alcohol Use History: Rare Past Drug Use History: None Reported - Past Family History Father Additional Family Medical History / Comment(s): AT AGE 41 FROM MVA Mother Family Medical History: No Reported History <Kanu Lopez - Last Filed: 01/20/18 17:54> General Exam <FranchescaPaola jeong - Last Filed: 01/20/18 16:30> Limitations: no limitations General appearance: alert, anxious Head exam: Present: normocephalic, other (Approximately 2.5 center laceration lateral left eyebrow no active bleeding no step-off or crepitation no other scalp or facial injuries noted.) Eye exam: Present: normal appearance, PERRL, EOMI. Absent: scleral icterus, conjunctival injection, periorbital swelling ENT exam: Present: normal exam, mucous membranes moist Neck exam: Present: normal inspection. Absent: tenderness, meningismus, lymphadenopathy Respiratory exam: Present: normal lung sounds bilaterally. Absent: respiratory distress, wheezes, rales, rhonchi, stridor Cardiovascular Exam: Present: regular rate, normal rhythm, normal heart sounds. Absent: systolic murmur, diastolic murmur, rubs, gallop, clicks GI/Abdominal exam: Present: soft, normal bowel sounds. Absent: distended, tenderness, guarding, rebound, rigid, bruit, pulsatile mass, hernia Rectal exam: Present: deferred Extremities exam: Present: full ROM, tenderness, normal capillary refill, other (There is an avulsion injury to the left anterior leg approximately 14.5 cm long and approximately 8 cm wide no active bleeding no step-off no bony involvement noted. No active bleeding.) Neurological exam: Present: alert, oriented X3, CN II-XII intact (Hard of hearing). Absent: motor sensory deficit Skin exam: Present: warm, dry. Absent: intact <Kanu Lopez - Last Filed: 01/20/18 17:54> - General Exam Comments Initial Comments: This is a well-developed asthenic appearing female who is hard appearing but appears be awake and alert and oriented. She also presented have a Quang Coma Scale of 15 (Kanu Lopez) Course <Paola Sorensen - Last Filed: 01/20/18 16:30> <Kanu Lopez - Last Filed: 01/20/18 17:54> Vital Signs 01/20/18 01/20/18 09:40 14:06 Temperature 98.2 F Pulse Rate 65 64 Respiratory 18 18 Rate Blood Pressure 122/60 134/62 O2 Sat by Pulse 92 L 89 L Oximetry - Reevaluation(s) Reevaluation #1: 01/20/18 17:47 Patient still complained of some abdominal pain. I had discussed the findings the patient's family and patient several times CAT scan head neck are negative CAT scan the abdomen which included the aorta showed a abdominal aortic aneurysm. No evidence of a leak. 01/20/18 17:48 Initial findings was that of a breast mass that seemed to be stable in the left breast. (Knau Lopez) Procedures - Laceration Laceration #1 Consent Obtained: verbal consent Indication: laceration Site: lower extremity Size (cm): 24 Description: flap (skin tear), irregular Depth: simple, single layer Pre-repair: wound explored, irrigated extensively, deep structures intact Type of Sutures: other (steri-strips) Number of Sutures: 30 Complications: pain Patient Tolerated Procedure: well Laceration #2 Consent Obtained: verbal consent Indication: laceration Site: face (lateral to left eyebrow) Size (cm): 1 Description: linear Depth: simple, single layer Pre-repair: wound explored, irrigated extensively, deep structures intact Size of Sutures: other (dermabond) Patient Tolerated Procedure: well, no complications <Paola Sorensen - Last Filed: 01/20/18 16:30> <Kanu Lopez - Last Filed: 01/20/18 17:54> - Laceration Laceration #1 Additional Comments: used topical urojet viscous lidocaine (Paola Sorensen) Medical Decision Making - Lab Data Result diagrams: 01/20/18 11:50 01/20/18 11:50 <Paola Sorensen - Last Filed: 01/20/18 16:30> - Lab Data Result diagrams: 01/20/18 11:50 01/20/18 11:50 - EKG Data -: EKG Interpreted by Me (Atrial fibrillation rate of 71. Interval 106 QRS 74 QT since QTC of 46/441) - Radiology Data Radiology results: report reviewed (I did review the imaging and reports no evidence of acute fracture there is a left breast mass is noted also abdominal aortic aneurysm and more please see the report.), image reviewed <Kanu Lopez - Last Filed: 01/20/18 17:54> - Medical Decision Making I did have several long conversations with the patient's family. The patient will be admitted for IV hydration and continued evaluation. The laceration and avulsion was repaired by my physician medical assistant dermatology. (Kanu Lopez) - Lab Data Lab Results 01/20/18 01/20/18 01/20/18 Range/Units 11:41 11:50 11:50 WBC (3.8-10.6) k/uL RBC (3.80-5.40) m/uL Hgb (11.4-16.0) gm/dL Hct (34.0-46.0) % MCV (80.0-100.0) fL MCH (25.0-35.0) pg MCHC (31.0-37.0) g/dL RDW (11.5-15.5) % Plt Count (150-450) k/uL Neutrophils % % Lymphocytes % % Monocytes % % Eosinophils % % Basophils % % Neutrophils # (1.3-7.7) k/uL Lymphocytes # (1.0-4.8) k/uL Monocytes # (0-1.0) k/uL Eosinophils # (0-0.7) k/uL Basophils # (0-0.2) k/uL PT 9.9 (9.0-12.0) sec INR 1.0 (<1.2) APTT 22.3 (22.0-30.0) sec Sodium (137-145) mmol/L Potassium (3.5-5.1) mmol/L Chloride (98-107) mmol/L Carbon Dioxide (22-30) mmol/L Anion Gap mmol/L BUN (7-17) mg/dL Creatinine (0.52-1.04) mg/dL Est GFR (CKD-EPI)AfAm (>60 ml/min/1.73 sqM) Est GFR (CKD-EPI)NonAf (>60 ml/min/1.73 sqM) Glucose (74-99) mg/dL Calcium (8.4-10.2) mg/dL Magnesium (1.6-2.3) mg/dL Total Bilirubin (0.2-1.3) mg/dL AST (14-36) U/L ALT (9-52) U/L Alkaline Phosphatase (38-126) U/L Total Creatine Kinase 155 H (30-135) U/L CK-MB (CK-2) 2.2 (0.0-2.4) ng/mL CK-MB (CK-2) Rel Index 1.4 Total Protein (6.3-8.2) g/dL Albumin (3.5-5.0) g/dL Urine Color Yellow Urine Appearance Clear (Clear) Urine pH 7.5 (5.0-8.0) Ur Specific [place] 1.012 (1.001-1.035) Urine Protein Negative (Negative) Urine Glucose (UA) Negative (Negative) Urine Ketones Negative (Negative) Urine Blood Negative (Negative) Urine Nitrite Negative (Negative) Urine Bilirubin Negative (Negative) Urine Urobilinogen <2.0 (<2.0) mg/dL Ur Leukocyte Esterase Negative (Negative) 01/20/18 01/20/18 Range/Units 11:50 11:50 WBC 11.2 H (3.8-10.6) k/uL RBC 3.96 (3.80-5.40) m/uL Hgb 11.4 (11.4-16.0) gm/dL Hct 35.0 (34.0-46.0) % MCV 88.3 (80.0-100.0) fL MCH 28.9 (25.0-35.0) pg MCHC 32.7 (31.0-37.0) g/dL RDW 13.7 (11.5-15.5) % Plt Count 358 (150-450) k/uL Neutrophils % 76 % Lymphocytes % 18 % Monocytes % 3 % Eosinophils % 2 % Basophils % 0 % Neutrophils # 8.5 H (1.3-7.7) k/uL Lymphocytes # 2.0 (1.0-4.8) k/uL Monocytes # 0.4 (0-1.0) k/uL Eosinophils # 0.2 (0-0.7) k/uL Basophils # 0.0 (0-0.2) k/uL PT (9.0-12.0) sec INR (<1.2) APTT (22.0-30.0) sec Sodium 132 L (137-145) mmol/L Potassium 4.9 (3.5-5.1) mmol/L Chloride 98 (98-107) mmol/L Carbon Dioxide 26 (22-30) mmol/L Anion Gap 8 mmol/L BUN 11 (7-17) mg/dL Creatinine 0.50 L (0.52-1.04) mg/dL Est GFR (CKD-EPI)AfAm >90 (>60 ml/min/1.73 sqM) Est GFR (CKD-EPI)NonAf 86 (>60 ml/min/1.73 sqM) Glucose 106 H (74-99) mg/dL Calcium 8.5 (8.4-10.2) mg/dL Magnesium 2.0 (1.6-2.3) mg/dL Total Bilirubin 0.6 (0.2-1.3) mg/dL AST 27 (14-36) U/L ALT 19 (9-52) U/L Alkaline Phosphatase 90 (38-126) U/L Total Creatine Kinase (30-135) U/L CK-MB (CK-2) (0.0-2.4) ng/mL CK-MB (CK-2) Rel Index Total Protein 6.7 (6.3-8.2) g/dL Albumin 3.5 (3.5-5.0) g/dL Urine Color Urine Appearance (Clear) Urine pH (5.0-8.0) Ur Specific [place] (1.001-1.035) Urine Protein (Negative) Urine Glucose (UA) (Negative) Urine Ketones (Negative) Urine Blood (Negative) Urine Nitrite (Negative) Urine Bilirubin (Negative) Urine Urobilinogen (<2.0) mg/dL Ur Leukocyte Esterase (Negative) Disposition <Paola Sorensen - Last Filed: 01/20/18 16:30> <Kanu Lopez - Last Filed: 01/20/18 17:54> Clinical Impression: Fall, Dehydration, Eyebrow laceration, Skin avulsion Disposition: ADMITTED IP TO THIS [facility] Condition: Stable Referrals: Fady Haines MD [Primary Care Provider] - 1-2 days
[2018-01-20] MEDS ORDERED: diphenhydrAMINE 50 MG/ML 1 ML VIAL IVP STA (13:33)
[2018-01-20] MEDS ORDERED: FAMOTIDINE 20 MG/2 ML VIAL IV STA (13:33)
[2018-01-20] MEDS ORDERED: methylPREDNISolone SOD SUCCI 125 MG/2 ML VIAL IV STA (13:33)
--- NOTE | 2018-01-20 13:53 | CT ---
EXAMINATION TYPE: CT brain carla jiang DATE OF EXAM: 01/20/2018 COMPARISON: CT brain October 02, 2016. HISTORY: Patient poor historian. Patient fell. Patient hit left side of head, laceration and contus ion at site. CT DLP: 1557 mGycm. Automated Exposure Control for Dose Reduction was Utilized. TECHNIQUE: CT scan of the head and cervical spine are performed without contrast. FINDINGS: There is no acute intracranial hemorrhage or midline shift identified. There is diffuse v entricular and sulcal prominence redemonstrated. Degree of ventricular dilatation slightly out of pro portion to degree of sulcal effacement but not significantly changed from prior. There is low-attenua tion in the deep and periventricular white matter redemonstrated. Corpus callosum is thinned on sagit mary images but felt present. The calvarium is intact. The globes are intact and the visualized sinuse s are clear. Cervical spine is visualized in its entirety from C1 through upper thoracic levels and demonstrates u nderlying rotary scoliosis without evidence of acute fracture or dislocation. Prevertebral soft tiss ue appears within normal limits. The C1-C2 articulation is within normal limits on the coronal image s. Osseous structures are demineralized. There is advanced narrowing of the atlantodental interval. Vert ebral body heights are maintained. There is moderate to severe multilevel spurring and disc space ame rowing beginning C3-C4 level extending through C6-C7 level. Posterior spur disc complexes are effacin g anterior thecal sac at these levels on sagittal and axial images. Review of axial images shows mult ilevel uncovertebral facet degenerative changes and marginal spurring contributing to multilevel bila teral neural foraminal narrowing. Thyroid gland is felt normal in size with scattered small low dense and calcified nodules. Lung apices show mild to moderate biapical pleural/parenchymal scarring and m ild emphysematous change. IMPRESSION: 1. There is no acute fracture or dislocation evident in the cervical spine. Demineralization, scoliot ic curvature, and multilevel degenerative changes noted. 2. No acute intracranial hemorrhage or midline shift is seen. Diffuse cerebral atrophy and chronic sm all vessel ischemic change is redemonstrated without significant interval change.
--- NOTE | 2018-01-20 15:23 | CT ---
EXAMINATION TYPE: CT angio thoracic/abd aorta DATE OF EXAM: 01/20/2018 COMPARISON: Chest x-ray earlier today. CTA chest October 01, 2016. HISTORY: Abnormal xray. Possible aneurysm. CT DLP: 2428 mGycm. Automated Exposure Control for Dose Reduction was Utilized. CONTRAST: CTA scan of the thorax, abdomen and pelvis is performed without oral and without and with IV Contrast , patient injected with 100 mL of Isovue 370. Three-D reconstructed images are created on independent workstation and reviewed. FINDINGS: VASCULAR: There is satisfactory enhancement of the central pulmonary artery and its branches. No line ar hypodensity to suggest dissection aorta is seen. There is normal three-vessel origin from the aort ic arch. There is mild calcified plaque in arch and great vessels. No thoracic aortic aneurysm is see n. There is mild calcified plaque in the descending thoracic aorta. There is more moderate calcified plaque in the abdominal aorta. There is patent celiac access, SMA, and bilateral single renal arterie s. There is fairly severe calcified plaque at origin of bilateral renal arteries. Cannot exclude sign ificant stenosis. Patent KELVIN is not definitively seen. There is infrarenal abdominal aortic aneurysm over roughly 7 cm in length with ectatic course making difficult to accurately measure, it measures 5 .3 x 3.9 cm axial image 78 but this may be exaggerated transversely due to ectatic horizontal course. Moderate to severe calcified plaque in bilateral common iliac arteries with plaque extending into in ternal/external iliac arteries bilaterally is seen. 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 There is moderate to severe calcified plaque in common femoral arteries bi lateral groin extending into proximal superficial and deep femoral arteries. LUNGS: There is mild biapical pleural/parenchymal scarring. There is elevated left hemidiaphragm with left basilar scarring and/or atelectasis. There is no pleural effusion or pneumothorax seen bilatera lly. There is mild to moderate biapical pleural/parenchymal scarring. MEDIASTINUM: There are no greater than 1 cm hilar or mediastinal lymph nodes. No pericardial effusi on is seen. OTHER: There is redemonstration of 1.7 x 1.2 cm superior medial left breast mass on axial image 45 pr esumed benign given interval stability. Correlate clinically, no prior breast mammogram or ultrasound evidence present in PACS. LIVER/GB: Some simple appearing cysts scattered throughout the liver are redemonstrated. PANCREAS: No significant abnormality is seen. SPLEEN: No significant abnormality is seen. ADRENALS: No significant abnormality is seen. KIDNEYS: No significant abnormality is seen. BOWEL: There is new small hiatal hernia. A few scattered colonic diverticula are present. There is no CT evidence for acute diverticulitis. There is no suspicious small or large bowel dilatation. GENITAL ORGANS: No gross abnormality seen. LYMPH NODES: No greater than 1cm abdominal or pelvic lymph nodes are appreciated. OSSEOUS STRUCTURES: There is advanced degenerative change bilateral glenohumeral joints. There is pro minent fluid surrounding right shoulder joint on current study suggesting possible synovial cysts. Os seous structures are demineralized. Underlying scoliosis is present. There is moderate to severe mult ilevel spurring in the spine. There is moderate to severe joint space loss in both hips. OTHER: No significant additional abnormality is seen. IMPRESSION: 1. Ectatic and aneurysmal change to infrarenal abdominal aorta measuring up to 5.3 cm transversely th ough this is likely exaggerated by ectatic course. At minimum imaging monitoring in 3-6 months time i s advised. Consider surgical and/or endovascular referral. No aortic dissection. 2. Attention to left breast mass as detailed above.
[2018-01-20] MEDS ORDERED: LORazepam 2 MG/ML INJ IV STA (15:27)
[2018-01-20] MEDS ORDERED: LIDOCAINE URO-JET JELLY 2% 5 ML KIT URETHRAL ONE (15:33)
[2018-01-20] MEDS ORDERED: TOPICAL SKIN ADHESIVE 1 EACH AMP TOPICAL ONE (16:35)
[2018-01-20] MEDS ORDERED: NALOXONE 0.4 MG/ML 1 ML VIAL IV PRN (17:54)
[2018-01-20] MEDS ORDERED: ACETAMINOPHEN TAB 325 MG TAB PO PRN (17:56)
[2018-01-20] MEDS ORDERED: NITROGLYCERIN SL TABS 0.4 MG TAB SUBLINGUAL PRN (17:56)
--- NOTE | 2018-01-20 17:57 | ED ---
Medical Decision Making - Lab Data Result diagrams: 01/20/18 11:50 01/20/18 11:50 Lab Results 01/20/18 01/20/18 01/20/18 Range/Units 11:41 11:50 11:50 WBC (3.8-10.6) k/uL RBC (3.80-5.40) m/uL Hgb (11.4-16.0) gm/dL Hct (34.0-46.0) % MCV (80.0-100.0) fL MCH (25.0-35.0) pg MCHC (31.0-37.0) g/dL RDW (11.5-15.5) % Plt Count (150-450) k/uL Neutrophils % % Lymphocytes % % Monocytes % % Eosinophils % % Basophils % % Neutrophils # (1.3-7.7) k/uL Lymphocytes # (1.0-4.8) k/uL Monocytes # (0-1.0) k/uL Eosinophils # (0-0.7) k/uL Basophils # (0-0.2) k/uL PT 9.9 (9.0-12.0) sec INR 1.0 (<1.2) APTT 22.3 (22.0-30.0) sec Sodium (137-145) mmol/L Potassium (3.5-5.1) mmol/L Chloride (98-107) mmol/L Carbon Dioxide (22-30) mmol/L Anion Gap mmol/L BUN (7-17) mg/dL Creatinine (0.52-1.04) mg/dL Est GFR (CKD-EPI)AfAm (>60 ml/min/1.73 sqM) Est GFR (CKD-EPI)NonAf (>60 ml/min/1.73 sqM) Glucose (74-99) mg/dL Calcium (8.4-10.2) mg/dL Magnesium (1.6-2.3) mg/dL Total Bilirubin (0.2-1.3) mg/dL AST (14-36) U/L ALT (9-52) U/L Alkaline Phosphatase (38-126) U/L Total Creatine Kinase 155 H (30-135) U/L CK-MB (CK-2) 2.2 (0.0-2.4) ng/mL CK-MB (CK-2) Rel Index 1.4 Total Protein (6.3-8.2) g/dL Albumin (3.5-5.0) g/dL Urine Color Yellow Urine Appearance Clear (Clear) Urine pH 7.5 (5.0-8.0) Ur Specific Rupert 1.012 (1.001-1.035) Urine Protein Negative (Negative) Urine Glucose (UA) Negative (Negative) Urine Ketones Negative (Negative) Urine Blood Negative (Negative) Urine Nitrite Negative (Negative) Urine Bilirubin Negative (Negative) Urine Urobilinogen <2.0 (<2.0) mg/dL Ur Leukocyte Esterase Negative (Negative) 01/20/18 01/20/18 Range/Units 11:50 11:50 WBC 11.2 H (3.8-10.6) k/uL RBC 3.96 (3.80-5.40) m/uL Hgb 11.4 (11.4-16.0) gm/dL Hct 35.0 (34.0-46.0) % MCV 88.3 (80.0-100.0) fL MCH 28.9 (25.0-35.0) pg MCHC 32.7 (31.0-37.0) g/dL RDW 13.7 (11.5-15.5) % Plt Count 358 (150-450) k/uL Neutrophils % 76 % Lymphocytes % 18 % Monocytes % 3 % Eosinophils % 2 % Basophils % 0 % Neutrophils # 8.5 H (1.3-7.7) k/uL Lymphocytes # 2.0 (1.0-4.8) k/uL Monocytes # 0.4 (0-1.0) k/uL Eosinophils # 0.2 (0-0.7) k/uL Basophils # 0.0 (0-0.2) k/uL PT (9.0-12.0) sec INR (<1.2) APTT (22.0-30.0) sec Sodium 132 L (137-145) mmol/L Potassium 4.9 (3.5-5.1) mmol/L Chloride 98 (98-107) mmol/L Carbon Dioxide 26 (22-30) mmol/L Anion Gap 8 mmol/L BUN 11 (7-17) mg/dL Creatinine 0.50 L (0.52-1.04) mg/dL Est GFR (CKD-EPI)AfAm >90 (>60 ml/min/1.73 sqM) Est GFR (CKD-EPI)NonAf 86 (>60 ml/min/1.73 sqM) Glucose 106 H (74-99) mg/dL Calcium 8.5 (8.4-10.2) mg/dL Magnesium 2.0 (1.6-2.3) mg/dL Total Bilirubin 0.6 (0.2-1.3) mg/dL AST 27 (14-36) U/L ALT 19 (9-52) U/L Alkaline Phosphatase 90 (38-126) U/L Total Creatine Kinase (30-135) U/L CK-MB (CK-2) (0.0-2.4) ng/mL CK-MB (CK-2) Rel Index Total Protein 6.7 (6.3-8.2) g/dL Albumin 3.5 (3.5-5.0) g/dL Urine Color Urine Appearance (Clear) Urine pH (5.0-8.0) Ur Specific Rupert (1.001-1.035) Urine Protein (Negative) Urine Glucose (UA) (Negative) Urine Ketones (Negative) Urine Blood (Negative) Urine Nitrite (Negative) Urine Bilirubin (Negative) Urine Urobilinogen (<2.0) mg/dL Ur Leukocyte Esterase (Negative) Disposition Clinical Impression: Fall, Dehydration, Eyebrow laceration, Skin avulsion, Abdominal aortic aneurysm , Left breast mass Disposition: ADMITTED IP TO THIS HOSP Condition: Stable Referrals: Fady Haines MD [Primary Care Provider] - 1-2 days
[2018-01-20] MEDS ORDERED: [UNRECOGNIZED DRUG - SUPPLY] TOPICAL SCH (18:00)
[2018-01-20] MEDS: IPRATROPIUM-ALBUTEROL 3 ML NEB INHALATION SCH (19:41)
[2018-01-20 20:11] VITALS: BMI 25.2
[2018-01-20] MEDS: SODIUM CHLORIDE 0.9% 1,000 ML IV SCH (21:24)
--- NOTE | 2018-01-20 22:12 | HP ---
HISTORY AND PHYSICAL CHIEF COMPLAINT: An 87-year-old white female with a fall. HISTORY OF PRESENT ILLNESS: This 87-year-old white female states her legs gave out on her. She may have passed our or her legs suddenly got weak. She fell to the floor. She is complaining of lower abdominal and pelvic pain radiating down the right leg, laceration of the left eyebrow which was sewed up in the emergency room, avulsion injury to her left f[place]. Denies any seizure or any prior falls. She lives at [facility] on [facility]. HOME MEDICATIONS: 1. Colace 100 mg daily. 2. Lasix 20 mg daily. 3. DuoNeb updrafts t.i.d. 4. Aspirin 81 mg daily. 5. Exederm1 topically every 72 hours. 6. Norvasc 5 mg daily. ALLERGIES: IODINE and PENICILLIN. REVIEW OF SYSTEMS: Fourteen point review of systems negative except for mentioned in HPI. PAST MEDICAL HISTORY: Cancer, atrial fibrillation, chronic emphysema, broken nose, skin cancer from the face, hay fever, arthritis in her knee, ulcers a few years ago, dementia, COPD. SURGICAL HISTORY: Joint replacement, tonsillectomy. She has right knee replacement, right foot bunionectomy, skin cancer removed from face, history of a possible breast mass that is unchanged since last time she had a CT scan. SOCIAL HISTORY: A former smoker, rare alcohol. FAMILY HISTORY: Father motor vehicle accident. Mother unclear. PHYSICAL EXAM: VITAL SIGNS: Stable, afebrile. She has a 2.5 cm laceration of the lateral left eyebrow. No active bleeding, was surgically fixed in the ER. OPHTHALMOLOGIC: Pupils equal, round, reactive to light and accommodation. No scleral icterus. ENT: External ear canals within normal limits. LUNGS: Normal lung sounds bilaterally. CARDIOVASCULAR: Regular rate and rhythm. Normal heart sounds. No murmurs, rubs or gallops. GI: Normal bowel sounds. No bruits, pulsatile masses or hernias. Extremities show full range of motion, avulsion injury left anterior leg, 14.5 cm long, 8 cm wide. No active bleeding. No bony abnormalities. NEUROLOGIC: Cranial nerves are intact. Skin is warm, dry and laceration is improved as mentioned. She is a thin, cachectic white female who appears in no acute respiratory distress. O2 saturation is 92% on room air. Temp 98.2, pulse 60s, respiratory rate 16-18. Abdomen shows some diffuse tenderness. She has abdominal aortic aneurysm which apparently has not changed. There is no evidence of a leak. She has a breast mass, stable in the left side. were placed in the left stitches were placed to the left upper eyelid. Dermabond was used. LABS: Reviewed. Sodium 132, potassium 4.9. White count 11.2, hemoglobin 11.4. ASSESSMENT: 1. Dehydration, syncope, possible fall. No fractures were seen on x-rays. 2. Left breast mass. 3. Abdominal aortic aneurysm which is unchanged from before per ER doctor. 4. Atrial fibrillation, stable. 5. Mild hyponatremia. 6. Skin avulsion. 7. Eyebrow laceration. Give IV fluids overnight. Monitor neurologically. Please see further orders. All CT scans will be reviewed. MMODL / IJN: [id number] /
[2018-01-21] MEDS: IPRATROPIUM-ALBUTEROL 3 ML NEB INHALATION SCH ×2 (07:27→13:01)
[2018-01-21] MEDS: SODIUM CHLORIDE 0.9% 1,000 ML IV SCH (07:39)
[2018-01-21] MEDS ORDERED: ASPIRIN 81 MG PO SCH (09:00)
[2018-01-21] MEDS ORDERED: FUROSEMIDE 20 MG TAB PO SCH (09:00)
[2018-01-21] MEDS ORDERED: amLODIPine 5 MG TAB PO SCH (09:00)
[2018-01-21] MEDS ORDERED: DOCUSATE 100 MG CAP PO SCH (09:00)
[2018-01-21 15:01] VITALS: BP 95/55; PULSE 64; RESP 18; TEMP 99
--- NOTE | 2018-01-21 15:04 | DS ---
DISCHARGE SUMMARY DISCHARGE MEDICATION: 1. Exoderm 1 application topical every 72 hours. 2. Lasix 20 mg daily. 3. DuoNeb 3 mL q.i.d. 4. Norvasc 5 mg daily, aspirin 81 mg daily, Colace 100 mg daily, XL derm 1 application topically every 72 hours, Lasix 20 mg daily nitroglycerin sublingual 0.4 mg sublingual p.r.n. CONDITION: Stable. PROGNOSIS: Guarded. Ambulate as tolerated. DISCHARGE DIAGNOSIS: 1. Left upper eyelid laceration. 2. Left lower leg laceration. 3. COPD. 4. Hyponatremia, hypertension, history of breast mass that has been unchanged since prior CT scan. 5. Abdominal aortic aneurysm of 5.3 cm. She can follow up with vascular surgeon down in the [facility]. She is being transferred down to the [facility] to a detention. She is a white female who has been followed before for aneurysm and due to her age and COPD, nothing was done for the aneurysms. She has also had a left breast mass is unchanged on the CAT scan here compared to a prior, nothing has been done for this due to her age and issues. She is 87 years old. She is doing well. She fell at home her the detention and is why she is admitted. She has 30 sutures placed in her left lower leg. She had left upper eyelid gluing done. She will follow up in the detention with a doctor today. She will be discharged home. Dehydration and IV fluids is given. She is stable from a medical standpoint. CONDITION: Stable PROGNOSIS: Guarded. Diet is regular. MMODL / IJN: [id number] /
== END 2018-01-21 16:25 ==
LOC: EC 09:36 → 4MS4W 17:54
PROVIDERS: ADMIT Family Medicine; ATTEND Family Medicine
DX: S01.112A Laceration without foreign body of left eyelid and periocular area, initial encounter (principal); S81.802A Unspecified open wound, left lower leg, initial encounter; E86.0 Dehydration; E87.1 Hypo-osmolality and hyponatremia; R55 Syncope and collapse; I10 Essential (primary) hypertension; W18.30XA Fall on same level, unspecified, initial encounter; Y92.002 Bathroom of unspecified non-institutional (private) residence as the place of occurrence of the external cause; R10.2 Pelvic and perineal pain; R10.30 Lower abdominal pain, unspecified; F03.90 Unspecified dementia, unspecified severity, without behavioral disturbance, psychotic disturbance, mood disturbance, and anxiety; H91.90 Unspecified hearing loss, unspecified ear; I48.91 Unspecified atrial fibrillation; J43.9 Emphysema, unspecified; M17.11 Unilateral primary osteoarthritis, right knee; I71.4 Abdominal aortic aneurysm, without rupture; N63.20 Unspecified lump in the left breast, unspecified quadrant; Z79.82 Long term (current) use of aspirin; Z79.899 Other long term (current) drug therapy; Z88.0 Allergy status to penicillin; Z91.048 Other nonmedicinal substance allergy status; Z85.828 Personal history of other malignant neoplasm of skin; Z87.891 Personal history of nicotine dependence
CPT/HCPCS: 12006 ×2; 12011 ×2; 99285 ×2; 96374 ×2; 96375 ×5; 96376 ×2; 36415; 94640 ×2; 93005; 97162; 80053; 82550; 82553; 83735; 85025; 85610; 85730; 81003; 72170; 73590; 71045; 74018; 72125; 70450; 75635; 71275; G0378 ×2; J2060; J2270; J1200; J2930; Q9967